=== PATIENT | male | born 1950 | race Caucasian/White ===

== ENCOUNTER 2024-07-06 06:14 | Observation (INO) ==
--- NOTE | 2024-05-27 12:53 | PAT Medication Instructions ---
Medication Instructions Date of Service May 27, 2024 Home Medications cholecalciferol (vitamin D3) 25 mcg (1,000 unit) tablet (Vitamin D3) 50 mcg PO QAM ezetimibe 10 mg tablet 10 mg PO QAM insulin NPH-regular 70-30 U-100 insulin 100 unit/mL subcutaneous pen (Novolin 70-30 FlexPen U-100 Insulin) 5 - 15 unit subcut TID insulin glargine 100 unit/mL (3 mL) subcutaneous pen (Lantus Solostar U-100 Insulin) 34 unit subcut QAM losartan 50 mg tablet 50 mg PO QAM ibuprofen 200 mg tablet 200 - 600 mg PO Q6H PRN Pain ASK your surgeon for instructions ibuprofen 200 mg tablet 200 - 600 mg PO Q6H PRN Pain DO NOT take the morning of surgery cholecalciferol (vitamin D3) 25 mcg (1,000 unit) tablet (Vitamin D3) 50 mcg PO QAM losartan 50 mg tablet 50 mg PO QAM Take morning of surgery With a small sip of water, OTHERWISE NOTHING TO EAT OR DRINK AFTER MIDNIGHT: ezetimibe 10 mg tablet 10 mg PO QAM Take evening before surgery insulin NPH-regular 70-30 U-100 insulin 100 unit/mL subcutaneous pen (Novolin 70-30 FlexPen U-100 Insulin) 5 - 15 unit subcut TID Insulin Dependent Diabetic Patients * Test your blood sugar the morning of surgery * If Blood Sugar is GREATER THAN 150, take HALF of your regular dose of: insulin glargine 100 unit/mL (3 mL) subcutaneous pen (Lantus Solostar U-100 Insulin) > take 17 units * If Blood Sugar is LESS THAN 150, DO NOT TAKE ANY: insulin glargine 100 unit/mL (3 mL) subcutaneous pen (Lantus Solostar U-100 Insulin) To receive further instructions at PAT visit: insulin NPH-regular 70-30 U-100 insulin 100 unit/mL subcutaneous pen (Novolin 70-30 FlexPen U-100 Insulin) 5 - 15 unit subcut TID Other Notes If you have any questions please call us at [phone] or [phone] or [phone] or [phone]
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
[2024-07-06] MEDS ORDERED: BUPIVACAINE 0.5 % 5 MG/1 ML PF 10ML VIAL ONE (06:28)
[2024-07-06] MEDS ORDERED: BUPIVACAINE 0.25% PF 30 ML VIAL ONE (06:28)
--- NOTE | 2024-07-06 06:42 | History & Physical Bridge Note ---
Date of Service July 06, 2024 History & Physical Bridge Note I have examined the patient, reviewed the History & Physical and in the interval since the performance of the History & Physical I have noted the following changes of clinical significance: no changes noted
[2024-07-06] MEDS ORDERED: MIDAZOLAM HCL 1 MG/ML 2ML VIAL ONE (07:11)
[2024-07-06] MEDS ORDERED: fentaNYL citrate PF 100 MCG/2 ML VIAL ONE ×2 (07:11→09:21)
[2024-07-06] MEDS: FAMOTIDINE 20 MG TAB PO SCH (07:13)
[2024-07-06] MEDS: LR 60ML/HR IV SCH (07:13)
[2024-07-06] MEDS: METOCLOPRAMIDE HCL 10 MG TABLET PO SCH (07:13)
[2024-07-06] MEDS: ACETAMINOPHEN 500 MG TAB PO SCH ×2 (07:13→14:24)
[2024-07-06] MEDS: LR 500ML BOLUS, THEN 15ML/HR IV SCH (07:13)
[2024-07-06] MEDS: CeleBREX 200 MG CAP PO SCH (07:13)
[2024-07-06] MEDS ORDERED: ATROPINE SULFATE 0.1 MG/ML 10ML SYR IV PRN (08:05)
[2024-07-06] MEDS ORDERED: ONDANSETRON INJ 2 MG/ML 2 ML VIAL IV PRN ×2 (08:05→10:52)
[2024-07-06] MEDS ORDERED: ePHEDrine sulfate 50 MG/ML AMP IV PRN (08:05)
[2024-07-06] MEDS: GABAPENTIN 300 MG CAP PO ONE (08:42)
[2024-07-06] MEDS ORDERED: ONDANSETRON INJ 2 MG/ML 2 ML VIAL ONE (09:23)
[2024-07-06] MEDS ORDERED: PROPOFOL IV EMULSION 10 MG/ML 20 ML VIAL IV ONE (09:23)
[2024-07-06] MEDS ORDERED: DEXAMETHASONE SOD INJ 4 MG/ML VIAL ONE (09:23)
[2024-07-06] MEDS ORDERED: ePHEDrine sulfate 50 MG/ML AMP ONE (09:24)
[2024-07-06] MEDS: ceFAZolin 2000MG 2,000 MG/15 ML SYR IV SCH ×2 (09:27→17:21)
[2024-07-06] MEDS: ROPIV 0.5% 246mg, Ketorolac 30mg, EPINEPHrine 0.5mg in NSS INFIL SCH (09:45)
[2024-07-06] MEDS: ORTHO JOINT ANESTHETIC ONE (09:46)
[2024-07-06] MEDS: TRANEXAMIC ACID 1,000 MG **IV Intra-op IV SCH (10:02)
[2024-07-06] MEDS ORDERED: PHARMACY GLYCEMIC MGMT CONSULT PRN (10:52)
[2024-07-06] MEDS ORDERED: CARBOHYDRATES FOR HYPOGLYCEMIA PO PRN ×2 (10:52→12:15)
[2024-07-06] MEDS ORDERED: ALUMINUM/MAGNESIUM SUSP 30 ML UDC PO PRN (10:52)
[2024-07-06] MEDS ORDERED: MAGNESIUM HYDROXIDE SUSP 30 ML UDC PO PRN (10:52)
[2024-07-06] MEDS ORDERED: DEXTROSE 50% 50 ML SYRINGE IV PRN ×2 (10:52→12:15)
[2024-07-06] MEDS ORDERED: METOCLOPRAMIDE HCL INJ 5 MG/ML 2 ML VIAL IV PRN (10:52)
[2024-07-06] MEDS ORDERED: NALOXONE HCL 0.4 MG/1 ML VIAL/CARP IV PRN (10:52)
[2024-07-06] MEDS ORDERED: GLUCOSE 10 TAB/TUBE PO PRN ×2 (10:52→12:15)
[2024-07-06] MEDS ORDERED: TAMSULOSIN HCL 0.4 MG CAP PO PRN (10:52)
[2024-07-06] MEDS ORDERED: HYDROmorphone INJ 0.5 MG/0.5 ML SYR IV PRN (10:52)
[2024-07-06] MEDS ORDERED: GLUCOSE 40% GEL 15 GM TUBE PO PRN ×2 (10:52→12:15)
[2024-07-06] MEDS ORDERED: bisacodyL 10 MG SUPP PR PRN (10:52)
[2024-07-06] MEDS ORDERED: GLUCAGON FOR INJ 1 MG VIAL SQ PRN (10:52)
--- NOTE | 2024-07-06 11:05 | Operative Report ---
PG Post Operative Report Pre & Post Diagnosis Operation Date: 07/06/24 08:50 Pre-Op Diagnosis: Right Knee Degenerative Joint Disease Post-Op Diagnosis: Right Knee Degenerative Joint Disease I identified the patient and participated in the time-out.: Yes Procedure Operation Date: 07/06/24 08:50 Actual Procedures p Right Total Knee Arthroplasty, Cemented(Right) - Bernabe Malloy MD Surgeon Bernabe Malloy MD Car Shifter Cheikh Nixon PA-C Estimated Blood Loss 50 Findings Consistent with Post-Op Diagnosis Operative findings show advanced right knee tricompartment DJD. He had grade 4 [id number] disease in all 3 compartments most severe in the medial side. He is a fixed varus deformity to his knee. Moderate-sized joint effusion. Specimens Right knee sent for pathology. Anesthesia Type General Regional Complications none Disposition Accompanied Patient To Recovery: No Indications Patient is 74-year-old gentleman is had a several year history of increasing right knee pain discomfort became less successful to conservative care. X-rays show advanced right knee DJD. He elects proceed with total knee arthroplasty. Description of Procedure Operative implants consist of: 1. Biomet Vanguard size 67.5 right posterior stabilized femoral component. 2. Biomet size 75 tibial tray. 3. 14 mm posterior stabilized polyethylene insert. 4. 31 x 8 all poly patella. The patient was taken the op room, identified, and placed on the operating table in the supine position. All contact areas were appropriately padded. IV antibiotics tried by anesthesia team. A spinal anesthetic was not performed due to his history of multiple back surgeries. A general anesthetic was implemented. A right thigh tent was then placed. The right lower extremities then prepped and draped in usual sterile fashion. The right leg was elevated exsanguinated with use of an Esmarch and tourniquet placed at 300 mmHg. An anterior approach to the right knee was then performed to longitudinal incision centered over the patella. Sharp dissection was got through subcutaneous tissue down the extensor mechanism. A medial parapatellar arthrotomy incision was made. Some subperiosteal dissection was carried out medially. The fat pad was resected munis patella tendon. The lateral patellofemoral ligament was released. Patella subluxated laterally knee was flexed. The osteophytes taken off distal femur. The ACL and PCL were then released from the distal femur the tibia subluxated anteriorly. The external treatment line jig was then placed on the anterior face of the tibia and adjusted 14 mm medially. Proximal tibial cut was made remove about a millimeter bone from the most deficient aspect medial tibial plateau. Some osteophytes taken off medially. The tibia sized to a size 75. Attention drawn to the femur. The distal femur examined the sharp drill. Intramedullary canal was suction. A right 6 degree valgus cutting guide was placed. The distal femoral cutting block was pinned in place. Distal femoral cut was made to take an additional 3 mm of bone off distal femur. The femur was then sized to a size 67.5. The AP cutting block was pinned parallel to the left car axis which was 3 degrees of external rotation. The anterior cut, anterior chamfer, posterior cut, posterior chamfer cuts were made. The box cutting guide was placed and adjust slight lateral and the box cut was made. The knee was flexed. The remnants of the medial and lateral menisci were excised. The osteophytes taken off the posterior aspect the femur. A trial femoral component was placed. The tibial tray was pinned Kirstie external rotation and the drill and stem punch were used to create defect in proximal tibia for the tibial tray. The knee was then trialed and the 14 mm insert fit most appropriately. Attention drawn the patella. The patella was cleaned of all soft tissue. Patella thickness measured 23 mm in thickness was cut down to 14. Was sized to a size 31 patella. The locals were drilled for 31 patella. The lateral osteophyte was removed. Patella button was placed. Knee was taken through range of motion patella tracked nicely with no thumbs test. Attention drawn to place the permanent components. Nupathe all trial components were removed. Bone plug was placed in the distal femur limit blood loss. A double batch Palacos G cement was mixed. A Biomet Vanguard size 67.5 right posterior Byce femoral component, size 75 tibial tray, a 14 mm posterior Byce polyethylene insert, and a 31 x 8 all poly patella then cemented in place. The knee was brought out into full extension till cement hardened. Final cement check was then performed. The pericapsular tissues were injected with total 100 cc of Ortho mix. The patient did get 1 g of tranexamic acid. The tourniquet was then let down for final. Time 57 minutes. He states that surgeries electrocautery. Extensor Meclomen closed with combination 1 PDS suture #1 Vicryl suture in a [id number] fashion. Extensor Meclomen checked found to be intact and subcutaneous tissue then closed with 2 Dexon suture in a buried interrupted fashion skin was closed skin joão. Leg was then cleaned and dried a sterile dressing with Xeroform, 4 fours, sterile cast padding, Soto bandage were applied. Patient then transferred to the recovery room stable condition. Patient tolerated procedure well and there are no complications. Cheikh Nixon, my physician marketing assistant manager, was present for the entire procedure. His assistance was essential and required for appropriate patient positioning, prepping and draping, surgical exposure, performing the technical details of the operation, placement the implants, closure of the wound, and placement of the sterile bandage. I attest to the content of the Intraoperative Record and any orders documented therein. Any exceptions are noted below.
--- NOTE | 2024-07-06 11:10 | XRay Report ---
XR knee RT 1 or 2V routine HISTORY: 74 years-old Male Surgical Post Op right knee arthroplasty COMPARISON: 05/19/2024 TECHNIQUE: 2 views of the right knee FINDINGS: Total arthroplasty with patellar resurfacing. No acute fracture or dislocation. Anterior midline skin joão and expected postoperative soft tissue swelling and deep tissue air with arterial calcificat ions. IMPRESSION: Total joint arthroplasty with expected postoperative changes. ACT 112: Negative or not required by law. The above report was generated using voice recognition software. It may contain grammatical, syntax o r spelling errors. Electronically signed by: Michael Duran M.D. 07/06/2024 11:08 AM
[2024-07-06] MEDS: fentaNYL citrate PF 100 MCG/2 ML VIAL IV PRN (11:13)
--- NOTE | 2024-07-06 11:45 | Anesthesiology Progress Note ---
Date of Service July 06, 2024 Anesthesia Post Procedure Vital Signs Vital Signs: Temp Pulse Resp BP Pulse Ox O2 Del Method O2 Flow Rate 07/06/24 11:35 80 20 154/91 H 94 Oxymask 3 07/06/24 11:25 75 14 163/86 H 97 Oxymask 5 07/06/24 11:15 77 13 176/89 H 96 Oxymask 5 07/06/24 11:05 79 18 178/100 H 94 Oxymask 5 07/06/24 10:56 36.8 C 86 14 165/87 H 94 Oxymask 9 07/06/24 06:54 36.8 C 68 20 150/98 H 97 Room Air Pain Intensity Right Knee: Pain Intensity: 4 Transfer of Care Handoff Completed per policy Notes Mental Status: alert / awake / arousable and participated in evaluation Patient Amnestic to Procedure: Yes Nausea / Vomiting: adequately controlled Pain: adequately controlled Airway Patency, RR, SpO2: stable & adequate BP & HR: stable & adequate Hydration State: stable & adequate Anesthetic Complications: no major complications apparent and Pt Satisfied with anesthetic care Notes: Pt without hiccups in recovery. was given preop gabapentin and iv protonix. dr snyder made aware if hiccups happen postop could consider omeprazole and please contact our service for guidance.
[2024-07-06] MEDS ORDERED: GLUCAGON FOR INJ 1 MG VIAL IM PRN (12:15)
[2024-07-06 13:06] VITALS: RESP 18
--- NOTE | 2024-07-06 13:27 | Pharmacy Report ---
Pharmacy Glycemic Short Note 2 - Date of Service July 06, 2024 - Glycemic Short BSG Results (Last 24 hours): 07/06/24 07/06/24 06:47 11:03 POC Glucose 129 H 180 H OUTPATIENT ANTIDIABETIC REGIMEN: * Patient reports Lantus 34 units SC qAM + Novolin 70/30 5-15 units SC TID (based on BSG levels) HbA1c: 8.3% (06/02/24) ASSESSMENT: * LN is a 74 year old male POD # 0 s/p right total knee arthroplasty * Received 12 mg IV dexamethasone in OR * Ordered 10 mg IV dexamethasone daily x 1 tomorrow morning * Preop blood sugar of 129 mg/dL, postop blood sugar of 180 mg/dL * Will use aggressive weight-based stress of 3 Novolog parameters + ~0.4 unit/kg basal (adjusted body-weight) PLAN FOR INPATIENT GLYCEMIC CONTROL: * Basal insulin * Lantus 30 units SQ x 1 (~0.4 unit/kg of adjusted body-weight) * Reassess in AM with next dose of IV dexamethasone * Bolus insulin * NovoLog per scale ACHS or Q6hrs while NPO * Goal Range: Low 110 mg/dL - High 140 mg/dL * Correction Factor: 15 mg/dL/unit * Nutritional / Prandial insulin per carb ratio of 1 unit per 5 grams CHO consumed
[2024-07-06] MEDS: LANTUS PER UNIT CHARGE SC ONE ×2 (13:58→17:11)
[2024-07-06] MEDS: INSULIN ASPART PER UNIT CHARGE SC SCH (13:58)
[2024-07-06] MEDS: SODIUM CHLORIDE 0.9% 1,000 ML IV SCH (13:58)
[2024-07-06] MEDS ORDERED: ACETAMINOPHEN 500 MG TAB PO SCH (14:00)
[2024-07-06] MEDS: oxyCODONE HCL IR 5 MG TAB (IMMEDIATE RELEASE) PO PRN (14:02)
[2024-07-06] MEDS: PANTOprazole 40 MG in SYRINGE 0 ML IV ONE (14:46)
[2024-07-06] MEDS: KETOROLAC TROMETHAMINE 15 MG/ML VIAL IV SCH (15:47)
[2024-07-06] MEDS: ASCORBIC ACID 500 MG TAB PO SCH (17:12)
[2024-07-06 19:45] VITALS: O2SAT 95
[2024-07-06] MEDS: ASPIRIN 81 MG ECTAB PO SCH (20:43)
[2024-07-06] MEDS: DOCUSATE SODIUM 100 MG CAP PO SCH (20:43)
[2024-07-06] MEDS: SENNA 8.6 MG TAB PO SCH (20:43)
[2024-07-06] MEDS ORDERED: LANTUS PER UNIT CHARGE SC SCH (21:00)
[2024-07-06] MEDS ORDERED: ASPIRIN 81 MG ECTAB PO SCH (21:00)
[2024-07-06] MEDS ORDERED: SENNA 8.6 MG TAB PO SCH (21:00)
[2024-07-06 21:54] LABS: BUN Creatinine Ratio 20.1 (10-20); Calcium 8.4 mg/dl (8.6-10.3); Creatinine Clr Calc Pharmacy 48.7 ml/min; Est GFR (African American) 49.5 ml/min; Est GFR (Non-African American) 42.7 ml/min; Potassium 5.5 mmol/L (3.5-5.1)
[2024-07-06] MEDS: TRANEXAMIC ACID / 0.7% NACL 1,000 MG/100 ML BAG IV SCH (22:23)
[2024-07-07] MEDS ORDERED: INSULIN ASPART PER UNIT CHARGE SC SCH
[2024-07-07] MEDS: INSULIN ASPART PER UNIT CHARGE SC SCH (00:32)
[2024-07-07 06:32] LABS: Hematocrit (blood only) 37.1 % (42.0-52.0); Hemoglobin 12.1 g/dl (14.0-18.0); Mean Corpuscular Hemoglobin 28.9 pg (25.0-34.0); Mean Corpuscular Hgb Conc 32.6 g/dL (32.0-36.0); Mean Corpuscular Volume 88.8 fL (80.0-100.0); Mean Platelet Volume 11.6 fL (9.4-12.4); Platelet Count 289 K/uL (130-400); RDW Coefficient of Variation 13.5 % (11.5-14.5); RDW Standard Deviation 43.8 fL (36.4-46.3); Red Blood Count 4.18 M/uL (4.70-6.10); White Blood Count 15.97 K/ul (4.8-10.8)
[2024-07-07 06:40] LABS: Calcium 8.3 mg/dl (8.6-10.3); Creatinine Clr Calc Pharmacy 55.3 ml/min; Est GFR (African American) 57.8 ml/min; Est GFR (Non-African American) 49.8 ml/min; Potassium 4.2 mmol/L (3.5-5.1)
[2024-07-07 07:08] VITALS: BP 121/61; PULSE 60; TEMP 97.7
[2024-07-07] MEDS: dexAMETHasone 10 MG in SYRINGE 0 ML IV SCH (08:10)
[2024-07-07] MEDS: MULTIVITAMIN TAB PO SCH (08:11)
[2024-07-07] MEDS: TAMSULOSIN HCL 0.4 MG CAP PO SCH (08:11)
[2024-07-07] MEDS: EZETIMIBE 10 MG TAB PO SCH (08:12)
[2024-07-07] MEDS: LOSARTAN POTASSIUM 50 MG TAB PO SCH (08:12)
[2024-07-07] MEDS: CHOLECALCIFEROL 25 MCG (1000 UNITS) TAB PO SCH (08:12)
[2024-07-07] MEDS ORDERED: LANTUS PER UNIT CHARGE SC SCH (09:00)
--- NOTE | 2024-07-07 09:20 | Pharmacy Report ---
Pharmacy Glycemic Short Note 2 - Date of Service July 07, 2024 - Glycemic Short BSG Results (Last 24 hours): 07/06/24 07/06/24 07/06/24 11:03 13:49 16:09 Glucose POC Glucose 180 H 273 H 355 H* 07/06/24 07/06/24 07/06/24 16:12 20:26 20:28 Glucose POC Glucose 307 H* 366 H* 399 H* 07/06/24 07/07/24 07/07/24 21:03 00:20 04:30 Glucose 375 H* POC Glucose 231 H 131 H 07/07/24 07/07/24 05:26 07:32 Glucose 131 H POC Glucose 130 H OUTPATIENT ANTIDIABETIC REGIMEN: * Patient reports Lantus 34 units SC qAM + Novolin 70/30 5-15 units SC TID (based on BSG levels) * HbA1c: 8.3% (06/02/24) ASSESSMENT: 07/07 * BSG's increased significantly after PO intake yesterday - likely steroid induced. Correction factor and CHO ratio were both tightened. POD 1 today and 2nd dose of dexamethasone given this AM. No ongoing steroids ordered at this time. * AM fasting BSG wnl - will continue same total daily dose today, but will not schedule additional for tomorrow yet due to steroid taper * OK to maintain tighter CHO ratio, but will loosen correction factor a bit as BSG's are now wnl with higher dose of Lantus now mostly on board (although not at steady state) 07/06 * LN is a 74 year old male POD # 0 s/p right total knee arthroplasty * Received 12 mg IV dexamethasone in OR * Ordered 10 mg IV dexamethasone daily x 1 tomorrow morning * Preop blood sugar of 129 mg/dL, postop blood sugar of 180 mg/dL * Will use aggressive weight-based stress of 3 Novolog parameters + ~0.4 unit/kg basal (adjusted body-weight) PLAN FOR INPATIENT GLYCEMIC CONTROL: * Basal insulin * Lantus 45 units SQ x 1 w lunch * Reassess in AM * Bolus insulin * NovoLog per scale ACHS or Q6hrs while NPO * Goal Range: Low 110 mg/dL - High 140 mg/dL * Correction Factor: 15 mg/dL/unit * Nutritional / Prandial insulin per carb ratio of 1 unit per 4 grams CHO consumed
[2024-07-07] MEDS ORDERED: LANTUS PER UNIT CHARGE SC ONE (11:30)
[2024-07-07] MEDS ORDERED: LANTUS PER UNIT CHARGE SC STA (11:50)
--- NOTE | 2024-07-07 12:41 | Orthopedic Progress Note ---
Date of Service July 07, 2024 Assessment & Plan (1) Status post right knee replacement: Plan: 74-year-old male poorly controlled diabetic postop day 1 from right knee replacement doing pretty well. Pains controlled. Blood glucoses were pretty elevated but under better control this morning. Plan: 1. DVT prophylaxis including Thiede teds, SCDs, aspirin twice a day. 2. PT/OT. Weight-bear as tolerated. Right total knee protocol. 3. Pain control doing okay with current pain regimen. 4. Disposition plan is to discharge to home with some home health later today. (2) Diabetes mellitus, type 2: (3) Hyperlipidemia: (4) Hypertension: Admission and Anticipated Discharge Date Admission Date: July 06, 2024 Subjective 74-year-old gentleman postop day 1 from a right knee replacement. He is doing pretty well. Had a pretty good night. Pains controlled. No chest pain or shortness of breath. Not feeling dizzy or lightheaded. Physical Exam Physical Exam: Physical examination reveals a pleasant middle-age male. He was walking around his room with a walker and the physical therapist when I visited today. Examination of the right leg does reveal a little bit of bloody drainage on the front of the dressing. He can do a straight leg raise. Can dorsiflex and plantarflex his foot appropriately. He is neurologically intact. Respiratory: normal respiratory effort, lungs clear to auscultation Cardiovascular: RRR, no murmur, no edema Gastrointestinal (Abdomen): normal bowel sounds, soft, nontender, no hepatosp lenomegaly Results & Data Vital Signs (Past 12 Hours) Vital Signs Temp Pulse Resp BP Pulse Ox O2 Del Method 07/07/24 07:07 36.5 C 60 18 121/61 95 Room Air 07/07/24 04:00 36.7 C 62 18 119/65 95 Room Air Laboratory Results Hemoglobin is 12.1. Hematocrit is 37.1. Electrolytes are fairly stable. Blood glucose has been a bit out of control but better this morning.
== END 2024-07-07 12:01 | disposition home health service (06) ==
LOC: 3E 06:14 → ASU 06:14

== ENCOUNTER 2025-04-30 13:39 | Inpatient (IN) ==
[2025-04-30] MEDS: HYDROmorphone INJ 0.5 MG/0.5 ML SYR IV STA (14:11)
[2025-04-30 14:20] LABS: Hematocrit (blood only) 49.4 % (42.0-52.0); Hemoglobin 16.6 g/dl (14.0-18.0); Immature Granulocytes # (auto) 0.03 K/uL (0.01-0.20); Immature Granulocytes % (auto) 0.4 %; Mean Corpuscular Hemoglobin 29.6 pg (25.0-34.0); Mean Corpuscular Volume 88.2 fL (80.0-100.0); Platelet Count 262 K/uL (130-400); RDW Standard Deviation 44.5 fL (36.4-46.3); Red Blood Count 5.60 M/uL (4.70-6.10); White Blood Count 7.00 K/ul (4.8-10.8)
[2025-04-30 14:38] LABS: Alanine Aminotransferase 29.0 U/L (7-52); Albumin Globulin Ratio 1.4 (0.9-2); Alkaline Phosphatase 70.0 U/L (34-104); Anion Gap 8.0 (3-11); Bilirubin,Total 0.6 mg/dl (0.2-1.0); Blood Urea Nitrogen 27.0 mg/dl (6-23); Calcium 9.1 mg/dl (8.6-10.3); Carbon Dioxide 24.0 mmol/L (21-32); Chloride 105.0 mmol/L (98-107); Creatinine Clr Calc Pharmacy 74.8 ml/min; Globulin 3.0 gm/dl (2.5-4.0); Glucose 93.0 mg/dl (70-99(Fasting)); Potassium 4.3 mmol/L (3.5-5.1); Sodium 137.0 mmol/L (136-145); Total Protein 7.3 gm/dl (6.0-8.3)
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
--- NOTE | 2025-04-30 15:24 | XRay Report ---
Exam: Chest x-ray one view portable. Reason for exam: Surgery preop screening. Previous studies: 02/01/2024. FINDINGS: Heart size is increased further with a moderate cardiomegaly now present. Increasing central pulmonary venous hypertension is present as well with the cephalization and distention of the central vessels. Marked abnormal widening of the mid and superior mediastinum are now present, newly appearing since the previous study. The peripheral lung zones show no definite acute infiltrate, collapse or edema. No large pleural effusion seen. IMPRESSION: 1. Increasingly severe cardiomegaly with significantly increased pulmonary venous hypertension as compared to the previous study of 06/02/2024. 2. Development of marked abnormal widening of the superior mediastinum not seen on the previous study. This could be at least partially vascular congestion, however developing underlying mass, adenopathy or aneurysm cannot be excluded. 3. Further evaluation with CT study of the thorax is indicated for this patient. Electronically signed by Javier Anne 04-30-2025 3:23 PM
[2025-04-30] MEDS ORDERED: ONDANSETRON INJ 2 MG/ML 2 ML VIAL IV PRN (15:45)
[2025-04-30] MEDS ORDERED: PHARMACY GLYCEMIC MGMT CONSULT PRN (15:45)
[2025-04-30] MEDS ORDERED: NALOXONE HCL 0.4 MG/1 ML VIAL/CARP IV PRN (15:45)
[2025-04-30] MEDS ORDERED: METOCLOPRAMIDE HCL INJ 5 MG/ML 2 ML VIAL IV PRN (15:45)
[2025-04-30] MEDS ORDERED: LORazepam 0.5 MG TAB PO PRN (15:45)
[2025-04-30] MEDS ORDERED: ONDANSETRON 4 MG OD TAB PO PRN (15:45)
[2025-04-30] MEDS ORDERED: ACETAMINOPHEN 1,000 MG/100 ML VIAL IV PRN (15:45)
[2025-04-30] MEDS ORDERED: MAGNESIUM HYDROXIDE SUSP 30 ML UDC PO PRN (15:45)
[2025-04-30] MEDS ORDERED: ACETAMINOPHEN 500 MG TAB PO PRN (15:45)
[2025-04-30] MEDS ORDERED: PROMETHAZINE 12.5 MG/50.5 ML BAG IV PRN (15:45)
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
[2025-04-30] MEDS ORDERED: GLUCOSE 40% GEL 15 GM TUBE PO PRN (16:15)
[2025-04-30] MEDS ORDERED: GLUCOSE 10 TAB/TUBE PO PRN (16:15)
[2025-04-30] MEDS ORDERED: DEXTROSE 50% 50 ML SYRINGE IV PRN (16:15)
[2025-04-30] MEDS ORDERED: GLUCAGON FOR INJ 1 MG VIAL SQ PRN (16:15)
[2025-04-30] MEDS: OPTIRAY 320 125ml IV ONE (16:51)
[2025-04-30] MEDS: INSULIN ASPART PER UNIT CHARGE SC SCH (16:55)
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
--- NOTE | 2025-04-30 18:43 | CT Scan Report ---
CTA CHEST WITH and WITHOUT CONTRAST: HISTORY: TECHNIQUE: CT angiogram of the chest was obtained with and without intravenous contrast. Coronal and sagittal reformats were created. IV CONTRAST: 100 mL of OMNIPAQUE 300 COMPARISON: Chest radiograph from same day. FINDINGS: LOWER NECK: Right thyroid nodule measuring 2.5 cm. Recommend nonemergent thyroid ultrasound for evaluation LYMPH NODES: Mildly enlarged mediastinal and hilar lymph nodes are nonspecific. Of note, there is a right hilar lymph node measuring 2.5 cm CARDIOVASCULAR: Cardiac size is enlarged. Coronary artery and valvular calcifications are noted. No aortic aneurysm. LUNGS: The trachea and central bronchi are widely patent. No focal confluent infiltrates are seen. Peribronchial wall thickening. Reticular changes in the periphery likely representing mild fibrotic change. Pulmonary vascular congestion. 4 mm subpleural nodule in the right middle lobe (series 5, image 28). There is a perifissural nodule in the left lower lobe measuring 6 mm (series 7, image 93) PLEURA: There are no pleural effusions. There is no pneumothorax. UPPER ABDOMEN: No acute findings. OSSEOUS STRUCTURES: No acute findings IMPRESSION: Mildly enlarged mediastinal and hilar lymph nodes are nonspecific. Of note, there is a right hilar lymph node measuring 2.5 cm Bronchiolitis. No focal consolidation. Pulmonary nodules measuring up to 6 mm as above. These are nonspecific however metastatic process could be a possibility in a right proper clinical context Right thyroid nodule measuring 2.5 cm. Recommend nonemergent thyroid ultrasound for evaluation Electronically signed by Shawn Jamison 04-30-2025 6:43 PM
[2025-04-30] MEDS: ASPIRIN 81 MG ECTAB PO SCH (20:47)
[2025-04-30] MEDS ORDERED: INSULIN ASPART PER UNIT CHARGE SC SCH (21:00)
[2025-04-30] MEDS ORDERED: LANTUS PER UNIT CHARGE SQ SCH (21:00)
[2025-05-01] MEDS: INSULIN ASPART PER UNIT CHARGE SC SCH ×3 (00:18→23:32)
[2025-05-01] MEDS: HYDROmorphone INJ 1 MG/ML SYRINGE IV PRN (00:58)
[2025-05-01] MEDS: HYDROmorphone INJ 0.5 MG/0.5 ML SYR IV PRN ×2 (05:51→23:33)
[2025-05-01] MEDS: TAMSULOSIN HCL 0.4 MG CAP PO SCH (08:56)
[2025-05-01] MEDS: LOSARTAN POTASSIUM 50 MG TAB PO SCH (08:56)
[2025-05-01] MEDS ORDERED: GLYCOPYRROLATE 0.2 MG/ML VIAL ONE (10:30)
[2025-05-01] MEDS ORDERED: ROCURONIUM BROMIDE 10 MG/ML 5 ML VIAL IV ONE (10:30)
[2025-05-01] MEDS ORDERED: DEXAMETHASONE SOD INJ 4 MG/ML VIAL ONE (10:30)
[2025-05-01] MEDS ORDERED: PROPOFOL IV EMULSION 10 MG/ML 20 ML VIAL IV ONE (10:30)
[2025-05-01] MEDS ORDERED: LIDOCAINE 2% 2 ML VIAL/AMP(20MG/ML) INFIL ONE (10:30)
[2025-05-01] MEDS ORDERED: ONDANSETRON INJ 2 MG/ML 2 ML VIAL ONE (10:30)
[2025-05-01] MEDS ORDERED: MIDAZOLAM HCL 1 MG/ML 2ML VIAL ONE (10:31)
[2025-05-01] MEDS ORDERED: SUGAMMADEX SODIUM 200 MG/2 ML VIAL IV ONE (10:31)
[2025-05-01 11:07] LABS: Hemoglobin A1C 10.0 % (4.5-5.6)
--- NOTE | 2025-05-01 11:13 | Hospitalist Progress Note ---
Date of Service May 01, 2025 Assessment & Plan (1) Neurogenic claudication due to lumbar spinal stenosis: (2) Abnormal chest xray: (3) Diabetes mellitus, type 2: Plan This is a 75 y/o male with insulin-requiring DM2 and other history as outlined who presented to the ED today with progressive lower back pain radiating down his left leg. Severe lower back pain Lumbar stenosis with radiculopathy -Outpatient MRI: large inferiorly extruded and possibly sequestered disc fragment eccentric to the left at L1-L2 with impingement on left nerve roots and moderate central canal stenosis, cauda equina likely tethered at this level -Admitted by ortho spine with plans for OR today for T12-L2 decompression and fusion surgery by Dr. Roman -Per ortho for pain control, wound care, anticoagulation and activities -Monitor H&H (pre-op hgb 16.6), incentive spirometry, PT/OT when appropriate Insulin-requiring DM2 - Basal/bolus insulin during admission - glycemic pharmacist consulted - Diabetic diet - A1c in AM - BSG ACHS Abnormal CXR -Admitted CXR abnormal with widened mediastinum of unclear etiology. Pt denies cardiac or respiratory complaints, no history of aortic aneurysm -CTA chest w/wo con ordered - no aortic aneurysm, cardiomegaly, vasc congestion and reticular changes noted in periphery of lungs likely representing mild fibrotic change -R thyroid nodule noted - recommend nonemergent thyroid ultrasound as outpatient -Saturating at 94% on room air, routine 2D echo added for further evaluation, can be done after OR today HTN - pt reports not an active issue, no longer on anti-hypertensive medication, follows with the [facility]. Optimize pain control DVT Ppx: SCDs per primary service PCP: [facility] Dispo: Admitted to med/surg Patient seen in collaboration with Dr. Alvarado. Please see addendum. Thank you for this consultation. We will follow the patient with you during their hospital stay. You can [facility] a [facility] via [email or web address]. I spent a total of 50 minutes coordinating, documenting, and providing care for this patient excluding time spent in the performance of separately billed ser vices or time spent by another provider/QHP. Admission and Anticipated Discharge Date Admission Date: April 30, 2025 Supervising Physician Co-Signing Physician Notes The patient was not seen and examined but the chart,labs and the medications reviewed Agree with assessment plan as outlined above by DEONDRE Salazar DR Subjective Seen and examined in 356-2. Lower back discomfort radiating to L leg. Awaiting OR. No other acute complaints. Bowel movement yesterday. Urinating without issue. Can ambulate to the bathroom and back but feels too weak beyond that at this time. No F/C, lightheadedness, CP, SOB, N/V, abd pain, dysuria, diarrhea or constipation. Physical Exam Physical Exam: At least ten systems reviewed and negative except as noted in the HPI. Results & Data Results & Data Vital Signs (Past 12 Hours) Vital Signs Temp Pulse Resp BP Pulse Ox O2 Del Method 05/01/25 07:13 36.3 C L 70 16 157/83 H 94 Room Air Laboratory Results Short CBC 04/30/25 Range/Units 14:08 WBC 7.00 (4.8-10.8) K/ul Hgb 16.6 (14.0-18.0) g/dl Hct 49.4 (42.0-52.0) % Plt Count 262 (130-400) K/uL BMP 04/30/25 14:08 Sodium 137 Potassium 4.3 Chloride 105 Carbon Dioxide 24 BUN 27 H Creatinine 1.07 Glucose 93 Calcium 9.1 Liver Function 04/30/25 Range/Units 14:08 Total Bilirubin 0.6 (0.2-1.0) mg/dl AST 18 (13-39) U/L ALT 29 (7-52) U/L Alkaline Phosphatase 70 (34-104) U/L Albumin 4.3 (3.4-5.0) gm/dl Diagnostic Findings Chest X-Ray 04/30/25 14:19 Exam: Chest x-ray one view portable. Reason for exam: Surgery preop screening. Previous studies: 02/01/2024. FINDINGS: Heart size is increased further with a moderate cardiomegaly now present. Increasing central pulmonary venous hypertension is present as well with the cephalization and distention of the central vessels. Marked abnormal widening of the mid and superior mediastinum are now present, newly appearing since the previous study. The peripheral lung zones show no definite acute infiltrate, collapse or edema. No large pleural effusion seen. IMPRESSION: 1. Increasingly severe cardiomegaly with significantly increased pulmonary venous hypertension as compared to the previous study of 06/02/2024. 2. Development of marked abnormal widening of the superior mediastinum not seen on the previous study. This could be at least partially vascular congestion, however developing underlying mass, adenopathy or aneurysm cannot be excluded. 3. Further evaluation with CT study of the thorax is indicated for this patient. Electronically signed by Javier Anne 04-30-2025 3:23 PM Chest CTA 04/30/25 15:56 CTA CHEST WITH and WITHOUT CONTRAST: HISTORY: TECHNIQUE: CT angiogram of the chest was obtained with and without intravenous contrast. Coronal and sagittal reformats were created. IV CONTRAST: 100 mL of OMNIPAQUE 300 COMPARISON: Chest radiograph from same day. FINDINGS: LOWER NECK: Right thyroid nodule measuring 2.5 cm. Recommend nonemergent thyroid ultrasound for evaluation LYMPH NODES: Mildly enlarged mediastinal and hilar lymph nodes are nonspecific. Of note, there is a right hilar lymph node measuring 2.5 cm CARDIOVASCULAR: Cardiac size is enlarged. Coronary artery and valvular calcifications are noted. No aortic aneurysm. LUNGS: The trachea and central bronchi are widely patent. No focal confluent infiltrates are seen. Peribronchial wall thickening. Reticular changes in the periphery likely representing mild fibrotic change. Pulmonary vascular congestion. 4 mm subpleural nodule in the right middle lobe (series 5, image 28). There is a perifissural nodule in the left lower lobe measuring 6 mm (series 7, image 93) PLEURA: There are no pleural effusions. There is no pneumothorax. UPPER ABDOMEN: No acute findings. OSSEOUS STRUCTURES: No acute findings IMPRESSION: Mildly enlarged mediastinal and hilar lymph nodes are nonspecific. Of note, there is a right hilar lymph node measuring 2.5 cm Bronchiolitis. No focal consolidation. Pulmonary nodules measuring up to 6 mm as above. These are nonspecific however metastatic process could be a possibility in a right proper clinical context Right thyroid nodule measuring 2.5 cm. 

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
[2025-05-01] MEDS ORDERED: ATROPINE SULFATE 0.1 MG/ML 10ML SYR IV PRN (13:27)
[2025-05-01] MEDS ORDERED: ONDANSETRON INJ 2 MG/ML 2 ML VIAL IV PRN (13:27)
[2025-05-01] MEDS ORDERED: PROMETHAZINE HCL 6.25 MG in SODIUM CHLORIDE 0.9% 50 ML IV PRN (13:27)
--- NOTE | 2025-05-01 13:56 | Electrocardiogram Report ---
Test Reason : Blood Pressure : */* mmHG Vent. Rate : 63 BPM Atrial Rate : 63 BPM P-R Int : 208 ms QRS Dur : 86 ms QT Int : 412 ms P-R-T Axes : 28 -32 -22 degrees QTcB Int : 421 ms Normal sinus rhythm Left axis deviation Minimal voltage criteria for LVH, may be normal variant ( R in aVL ) Abnormal ECG When compared with ECG of 02-Jun-2024 10:05, No significant change was found Confirmed by Robinson Novoa ([id number]) on 05/01/2025 1:56:30 PM Referred By: REFERRED SELF Confirmed By: Robinson Novoa
--- NOTE | 2025-05-01 14:14 | History & Physical Bridge Note ---
Date of Service May 01, 2025 History & Physical Bridge Note I have examined the patient, reviewed the History & Physical and in the interval since the performance of the History & Physical I have noted the following changes of clinical significance: no changes noted Patient has severe lumbar spondylosis with disc herniation neurologic decline, and intermittent loss of bowel control. Subsequently recommending emergent decompression L1-L2 fusion T12-L2
--- NOTE | 2025-05-01 14:37 | Pharmacy Report ---
Pharmacy Glycemic Short Note 2 - Date of Service May 01, 2025 - Glycemic Short BSG Results (Last 24 hours): 04/30/25 04/30/25 04/30/25 14:08 16:31 20:31 Glucose 93 POC Glucose 89 160 H 05/01/25 05/01/25 05/01/25 00:16 06:35 11:54 Glucose POC Glucose 134 H 219 H 153 H OUTPATIENT ANTIDIABETIC REGIMEN: * Novolin 70/30 - SSI TID HbA1c: 10% (05/01/25) ASSESSMENT: * SAM is a 75 year old male who presented w/ lumbar disc herniation w/ radiculopathy scheduled for urgent decompression/fusion * Dexamethasone 8 mg IV x 1 ordered in OR * Patient still in OR at time of this note, will plan for basal postoperatively * Blood sugars elevated today as well as HbA1c PLAN FOR INPATIENT GLYCEMIC CONTROL: * Hold pre-mixed insulin * Basal insulin * Lantus 30-40 units SQ x 1 postoperatively (pending evaluation from evening shift pharmacist) * Bolus insulin * NovoLog per scale ACHS or Q6hrs while NPO * Goal Range: Low 110 mg/dL - High 140 mg/dL * Correction Factor: 15 mg/dL/unit * Nutritional / Prandial insulin per carb ratio of 1 unit per 5 grams CHO consumed
[2025-05-01] MEDS: BUPIVACAINE/EPINEPHRINE 0.25% 1:200,000 30 ML VIAL ONE (15:08)
--- NOTE | 2025-05-01 15:10 | Anesthesiology Progress Note ---
Date of Service May 01, 2025 Anesthesia Post Procedure Vital Signs Vital Signs: Temp Pulse Pulse Resp BP BP Pulse Ox 05/01/25 13:06 37.2 C 76 20 151/90 H 94 05/01/25 07:13 36.3 C L 70 16 157/83 H 94 04/30/25 19:43 36.4 C L 59 L 16 148/84 H 95 04/30/25 15:45 04/30/25 15:45 36.6 C 61 18 170/94 H 94 04/30/25 15:45 16 04/30/25 15:12 63 21 114/77 93 O2 Del Method 05/01/25 13:06 Room Air 05/01/25 07:13 Room Air 04/30/25 19:43 Room Air 04/30/25 15:45 Room Air 04/30/25 15:45 Room Air 04/30/25 15:45 Room Air 04/30/25 15:12 Pain Intensity Medial Back: Pain Intensity: 4 Transfer of Care Handoff Completed per policy Notes Mental Status: alert / awake / arousable and participated in evaluation Patient Amnestic to Procedure: Yes Nausea / Vomiting: adequately controlled Pain: adequately controlled Airway Patency, RR, SpO2: stable & adequate BP & HR: stable & adequate Hydration State: stable & adequate Anesthetic Complications: no major complications apparent
[2025-05-01] MEDS: FLOSEAL HEMOSTATIC MATRIX 10ML TOP ONE (16:10)
[2025-05-01] MEDS: SURGICEL ABSORB HEMOSTAT 2IN X 14IN TOP ONE (16:14)
[2025-05-01] MEDS: ceFAZolin 330 MG/ML 1 GM VIAL ONE (16:16)
[2025-05-01] MEDS ORDERED: HYDROmorphone INJ 2 MG/ML SYR/VIAL ONE (16:35)
--- NOTE | 2025-05-01 16:41 | Operative Report ---
Post Operative Report Pre & Post Diagnosis Operation Date: 05/01/25 07:00 Pre-Op Diagnosis: #1 lumbar disc herniation with radiculopathy #2 lumbar spondylosis with radiculopathy and retrolisthesis #3 lumbar spinal stenosis Post-Op Diagnosis: Same I identified the patient and participated in the time-out.: Yes Procedure Operation Date: 05/01/25 07:00 Actual Procedures #1 decompression with bilateral medial facetectomies and foraminotomies T12-L1 L1-L2 with excision of herniated free fragment L1-L2. #2 posterior spinal fusion T11-L2. #3 placement posterior instrumentation T11-L1 with connectors at L2-L3. #4 interbody fusion L1-L2. #5 placement of Spira 13 x 26 mm at L1-L2. #6 placement locally harvested morselized autograft posterior gutters. #7 placement infuse collagen sponge, with Koros in the posterior lateral gutters and os design interbody space. #8 placement of versa wrap of the exposed dura. Surgeon Nick Roman, DO Remelt Pan Tank Operator Kiki Pringle Estimated Blood Loss 200 Findings See Below The patient is 5 foot 9 weighing over 108 kg with a BMI in excess of 35. The patient's body habitus did contribute to significant technical difficulty with positioning exposure and the procedure itself adding least 50% increased operative time. Specimens None Indications This is a 75-year-old male presents publish diagnosis. With his marked decline in neurologic function he is here for urgent decompression fusion. Description of Procedure Patient was met with identified informed consent obtained. Patient was then taken to the operative suite underwent intubation placed in a prone position on the Ulysses table the chest pad and hip bolsters. All bony prominences well- padded eyes inspected to ensure no external pressure placed upon them. This point the thoracolumbar spine was prepped and draped in a sterile fashion. Sharp dissection with the assistance of Bovie cautery performed down to exposing the lamina and transverse processes of T11 T12-L1 and the instrumentation at L2- L3. More caudal to cephalad fashion complete laminectomy of L1 was performed including bilateral medial facetectomies and foraminotomies as well as addressing a massive disc herniation that had migrated caudally. And I performed partial laminectomy of T12 with bilateral facetectomies to address all subarticular stenosis. Pedicle screws were then placed in T11 T12-L1 bilaterally with assistance of fluoroscopy and a connector attached to the previous william at L2-L3. By way the transforaminal approach on the left complete discectomy of L1-L2 was performed endplates corrected to subcortical bleeding bone and a 13 x 26 mm spiral cage filled with os design bone graft tapped in position. Appropriate size rods were then contoured and locked in the place bilaterally. The transverse processes of T11-T12 L1-L2 burred to subcortical bony bone. Infuse collagen sponge bath Koros and local autograft placed in posterior gutters. First wrap placed over the exposed dura. 15 round JOCELYNE drain inserted. The incision was then closed with 1 Vicryl the fascia 2-0 Vicryl subcutaneously and 4 Monocryl for final skin closure. Steri-Strips and sterile dressing placed. Patient waken taken to PACU in stable condition. Please note Kiki Pringle was present at the entire procedure and on the patient positioning complex portion of the surgery and final skin closure. I attest to the content of the Intraoperative Record and any orders documented therein. Any exceptions are noted below.
[2025-05-01] MEDS ORDERED: LANTUS PER UNIT CHARGE SC STA (17:27)
[2025-05-01] MEDS ORDERED: ESMOLOL HCL INJ 10 MG/ML 10ML VIAL IV ONE (18:30)
--- NOTE | 2025-05-01 18:45 | Anesthesiology Progress Note ---
Date of Service May 01, 2025 Anesthesia Post Procedure Vital Signs Vital Signs: Temp Pulse Pulse Resp BP Pulse Ox O2 Del Method 05/01/25 18:35 82 16 129/74 90 Nasal Cannula 05/01/25 18:25 132 H 14 102/77 92 Nasal Cannula 05/01/25 18:15 134 H 12 120/78 93 Nasal Cannula 05/01/25 18:05 138 H 12 112/73 94 Nasal Cannula 05/01/25 17:55 139 H 20 100/73 94 Nasal Cannula 05/01/25 17:45 142 H 17 116/85 94 Nasal Cannula 05/01/25 17:35 100 H 14 110/91 93 Nasal Cannula 05/01/25 17:25 97 H 12 120/91 93 Oxymask 05/01/25 17:15 129 H 12 116/74 94 Oxymask 05/01/25 17:05 96 H 12 131/79 94 Oxymask 05/01/25 16:58 36.7 C 125 H 12 129/77 94 Oxymask 05/01/25 13:06 37.2 C 76 20 151/90 H 94 Room Air 05/01/25 07:13 36.3 C L 70 16 157/83 H 94 Room Air 04/30/25 19:43 36.4 C L 59 L 16 148/84 H 95 Room Air O2 Flow Rate 05/01/25 18:35 4 05/01/25 18:25 4 05/01/25 18:15 5 05/01/25 18:05 5 05/01/25 17:55 5 05/01/25 17:45 5 05/01/25 17:35 5 05/01/25 17:25 8 05/01/25 17:15 8 05/01/25 17:05 8 05/01/25 16:58 8 05/01/25 13:06 05/01/25 07:13 04/30/25 19:43 Pain Intensity Medial Back: Pain Intensity: 4 Transfer of Care Handoff Completed per policy Notes Mental Status: alert / awake / arousable and participated in evaluation Patient Amnestic to Procedure: Yes Nausea / Vomiting: adequately controlled Pain: adequately controlled Airway Patency, RR, SpO2: stable & adequate BP & HR: stable & adequate Hydration State: stable & adequate Anesthetic Complications: no major complications apparent and Pt Satisfied with anesthetic care Notes: Patient tachycardic in PACU. Denied chest pain/pressure/SOB. Pain well controlled. Only 200ml reported blood loss during procedure (patient with high H/H preop so less likely tachy 2/2 anemia). Multiple ECG's done as patient's HR 130's-140's with minimal variability. Sinus tach vs SVT. Tried to have patient do valsalva maneuvers without success. Primary team notified and patient to go to telemetry postop. Hospitalist saw patient in recovery and agreed with IVF therapy and more monitored postop unit. I felt his tachycardia was SVT in nature and therefore gave 10mg of IV esmolol in recovery at bedside. HR went into 70's and repeat ECG showed NSR. Patient stable and ready for transfer.
[2025-05-01] MEDS: METOPROLOL TARTRATE 1 MG/ML VIAL IV STA (19:02)
[2025-05-01] MEDS: METOPROLOL TARTRATE 1 MG/ML VIAL IV ONE (19:07)
[2025-05-01] MEDS: HYDROmorphone INJ 2 MG/ML SYR/VIAL IV PRN (19:28)
--- NOTE | 2025-05-01 19:51 | Fluoroscopy Report ---
Frontal and lateral intraoperative fluoroscopic images of the lower thoracic and lumbar spine No comparison Impression: There are vertical stabilization rods and transpedicular screws spanning multiple thoracic and vertebral bodies. The visualized orthopedic hardware appears intact and well aligned. Electronically signed by Stepan Spangler 05-01-2025 7:51 PM
[2025-05-01 19:56] LABS: Anion Gap 10.0 (3-11); Blood Urea Nitrogen 28.0 mg/dl (6-23); Calcium 8.4 mg/dl (8.6-10.3); Carbon Dioxide 22.0 mmol/L (21-32); Chloride 102.0 mmol/L (98-107); Creatinine Clr Calc Pharmacy 60.2 ml/min; Glucose 342.0 mg/dl (70-99(Fasting)); Magnesium 1.8 mg/dl (1.7-2.4); Potassium 4.7 mmol/L (3.5-5.1); Sodium 134.0 mmol/L (136-145)
[2025-05-01] MEDS ORDERED: SOD PHOSPHATE/SOD BIPHOSPHATE ENEMA 132 ML BTL PR PRN (19:57)
[2025-05-01] MEDS ORDERED: FAMOTIDINE 20 MG TAB PO PRN (19:57)
[2025-05-01] MEDS ORDERED: MAGNESIUM HYDROXIDE SUSP 30 ML UDC PO PRN (19:57)
[2025-05-01] MEDS ORDERED: NALOXONE HCL 0.4 MG/1 ML VIAL/CARP IV PRN (19:57)
[2025-05-01] MEDS ORDERED: DO NOT ADMINISTER FLU VACCINE PRN (19:57)
[2025-05-01] MEDS ORDERED: LORazepam 0.5 MG TAB PO PRN (19:57)
[2025-05-01] MEDS ORDERED: DO NOT ADMINISTER PNEUMOCOCCAL VACCINE PRN (19:57)
[2025-05-01] MEDS ORDERED: diphenhydrAMINE Capsule 25 MG CAP PO PRN (19:57)
[2025-05-01] MEDS ORDERED: HYDROmorphone INJ 1 MG/ML SYRINGE IV PRN (19:57)
[2025-05-01] MEDS ORDERED: ALUMINUM/MAGNESIUM SUSP 30 ML UDC PO PRN (19:57)
[2025-05-01] MEDS ORDERED: ONDANSETRON 4 MG OD TAB PO PRN (19:57)
[2025-05-01] MEDS: SODIUM CHLORIDE 0.9% 1,000 ML IV SCH (20:31)
[2025-05-01] MEDS: DOCUSATE SODIUM/SENNA 50/8.6MG TAB PO SCH (20:38)
[2025-05-01] MEDS: LANTUS PER UNIT CHARGE SC SCH (20:38)
[2025-05-01] MEDS: ACETAMINOPHEN 500 MG TAB PO PRN (20:38)
[2025-05-02] MEDS: INSULIN ASPART PER UNIT CHARGE SC SCH (03:42)
[2025-05-02 06:24] LABS: Hematocrit (blood only) 44.4 % (42.0-52.0); Hemoglobin 14.0 g/dl (14.0-18.0); Mean Corpuscular Hemoglobin 28.5 pg (25.0-34.0); Mean Corpuscular Volume 90.4 fL (80.0-100.0); Platelet Count 256 K/uL (130-400); RDW Standard Deviation 46.8 fL (36.4-46.3); Red Blood Count 4.91 M/uL (4.70-6.10); White Blood Count 14.94 K/ul (4.8-10.8)
[2025-05-02] MEDS: POLYETHYLENE (MIRALAX) 17 GM PACK PO SCH (06:26)
[2025-05-02] MEDS: ONDANSETRON INJ 2 MG/ML 2 ML VIAL IV PRN (06:39)
[2025-05-02 06:45] LABS: Immature Granulocytes # (auto) 0.09 K/uL (0.01-0.20); Immature Granulocytes % (auto) 0.6 %; RBC Morphology Unremarkable
[2025-05-02 06:54] LABS: Anion Gap 9.0 (3-11); Blood Urea Nitrogen 39.0 mg/dl (6-23); Calcium 8.2 mg/dl (8.6-10.3); Carbon Dioxide 24.0 mmol/L (21-32); Chloride 103.0 mmol/L (98-107); Creatinine Clr Calc Pharmacy 47.3 ml/min; Glucose 279.0 mg/dl (70-99(Fasting)); Potassium 5.3 mmol/L (3.5-5.1); Sodium 136.0 mmol/L (136-145)
[2025-05-02] MEDS: METOCLOPRAMIDE HCL INJ 5 MG/ML 2 ML VIAL IV PRN (07:25)
--- NOTE | 2025-05-02 07:31 | Hospitalist Progress Note ---
Date of Service May 02, 2025 Assessment & Plan (1) Neurogenic claudication due to lumbar spinal stenosis: (2) Abnormal chest xray: (3) Diabetes mellitus, type 2: (4) Lumbar radiculopathy: Plan This is a 75 y/o male with insulin-requiring DM2 and other history as outlined who presented to the ED today with progressive lower back pain radiating down his left leg. Severe lower back pain Lumbar stenosis with radiculopathy Outpatient MRI: large inferiorly extruded and possibly sequestered disc fragment eccentric to the left at L1-L2 with impingement on left nerve roots and moderate central canal stenosis, cauda equina likely tethered at this level POD#1 s/p decompression with bilateral medial facetectomies and foraminotomies T12-L1 L1-L2 with excision of herniated free fragment L1-L2, posterior spinal fusion T11-L2 ... by Dr. Roman Per ortho for pain control, wound care, anticoagulation and activities Continue incentive spirometry, PT/OT when appropriate Monitor H&H - hgb 14 today (pre-op 16, EBL 200ml) - asymptomatic, repeat CBC in AM Post-op tachycardia Noted to have narrow complex tachycardia in PACU following surgery with HR 130- 140s around 1730, resolved after 10mg Esmolol and fluids Tele reviewed once on 4th floor - atrial tachycardia around 2044 with HR 120s, resolved by 0 and has remained NSR 70-80s, asymptomatic ECG this morning showing sinus rhythm with 1st degree block Continue monitoring, consider cardiology consult if arrhythmia recurs Post-op N/V Emesis x 2 post-op, dyspepsia Started IV Pepcid, Protonix , PRN Phenergan - significantly improved RAFAEL Cr 1.69 (from 1.3 yesterday), previous Cr 1-1.3 Likely pre-renal 2/2 PO losses LR @ 100, repeat BMP this evening at 2000 Hyperkalemia K 5.3 this AM, started on IV fluids Low K diet Repeat BMP this evening Poorly controlled Insulin-requiring DM2 Basal/bolus insulin during admission, receiving IV decadron - glycemic pharmacist consulted Diabetic diet A1c 10 BSG ACHS Abnormal CXR Mediastinal lymphadenopathy Pulmonary Nodules Admitted CXR abnormal with widened mediastinum of unclear etiology. Pt denies cardiac or respiratory complaints, no history of aortic aneurysm CTA chest w/wo con ordered - no aortic aneurysm, cardiomegaly, vasc congestion and reticular changes noted in periphery of lungs likely representing mild fibrotic change Obtained 2D echo given cardiomegaly - moderate concentric LVH, EF 60-65%, grade 1 diastolic dysfunction Recommend follow up with cardiology and Pulmonology through [facility] Will need repeat CT chest as outpatient to ensure resolution. R thyroid nodule Noted on CTA chest - recommend nonemergent thyroid ultrasound as outpatient HTN - pt reports not an active issue, no longer on anti-hypertensive medication, follows with the [facility]. Optimize pain control DVT Ppx: SCDs per primary service PCP: [facility] Dispo: Admitted to med/surg Patient seen in collaboration with Dr. Burdick. Please see addendum. Thank you for this consultation. We will follow the patient with you during their hospital stay. You can reach [facility] via [employer]. I spent a total of 50 minutes coordinating, documenting, and providing care for this patient excluding time spent in the performance of separately billed services or time spent by another provider/QHP. Admission and Anticipated Discharge Date Admission Date: April 30, 2025 Supervising Physician Co-Signing Physician Notes Patient is seen and examined at bedside. No recurrence of SVT this morning. Rate is controlled in sinus on monitor. Patient admits to have nausea vomiting this morning. Also states having some back pain at surgical site. His symptoms improved after receiving Pepcid. On exam patient is obese, no apparent distress, normocephalic atraumatic, EOMI, normal breath sounds, clear to auscultation, S1-S2, no murmur, no pedal edema, abdomen soft, nontender, bowel sounds, alert, awake, oriented, grossly no focal deficits. Lumbar spinal stenosis with radiculopathy s/p decompression, fusion surgery. Monitor for postop anemia. Pain control, activity, wound care per primary team. Continue PT OT, fall precautions. Postoperative tachycardia much improved, sinus currently. Monitor, replace electrolytes as needed. Gentle IV fluids given RAFAEL. Monitor renal function, avoid nephrotoxic agents as able. Expect hyperkalemia to resolve with IV fluids. Monitor. Needs further workup as outpatient for mediastinal lymphadenopathy, pulmonary nodules and right thyroid nodule as outpatient. I personally interviewed and examined the patient at bedside. I have reviewed the advanced practitioner's documentation on the date of service referred in note and agree with plan. Patient's care is coordinated with Leatha Malloy PA-C. Please refer to the documentation above for details of patient's presentation and for discussion of other issues. I spent a total of 25minutes coordinating, documenting, and providing care for this patient excluding time spent in the performance of separately billed services or time s pent by another provider/QHP. Subjective Seen and examined in 451-2. Post op last evening had SVT run while in PACU. Evaluated by data communications software consultant and returned to NSR in 70s following 10m Esmolol and IV fluids. Monitor remained in NSR since then. Nauseated overnight with emesis x 2. This morning small amount light brown in color. Improved with antiemetics. Surgical site pain 5/10. No F/C, CP/SOB, abd pain, dysuria. No post op flatus yet. Review of Systems Review of Systems: At least ten systems reviewed and negative except as noted in the HPI. Physical Exam Physical Exam: Gen: WD/WN, NAD, resting in bed, appears ill, A&Ox3 HEENT: Normocephalic, atraumatic, dry mucous membranes of oropharynx Lung: Clear to Auscultation bilaterally Heart: Regular rate, regular rhythm Abdomen: Soft, NT, ND +BS x 4 Extremities: Thoracic/lumbar spinal dressing c/d/i, JOCELYNE drain visualized, no BLE edema, + SCDs Skin: Warm, no rash Results & Data Results & Data Vital Signs (Past 12 Hours) Vital Signs Temp Pulse Pulse Resp BP Pulse Ox O2 Del Method 05/02/25 07:12 36.7 C 82 22 147/66 H 92 Room Air 05/02/25 03:50 36.5 C 87 18 119/81 90 Room Air 05/02/25 00:00 36.4 C L 94 H 18 109/70 91 Nasal Cannula 05/01/25 21:53 93 H 05/01/25 21:27 36.5 C 120 H 18 106/62 93 Nasal Cannula 05/01/25 20:13 94 H 05/01/25 20:13 Nasal Cannula 05/01/25 19:57 36.4 C L 94 H 18 100/58 L 92 Nasal Cannula 05/01/25 19:45 77 13 108/74 96 Nasal Cannula O2 Flow Rate 05/02/25 07:12 05/02/25 03:50 05/02/25 00:00 2.0 05/01/25 21:53 05/01/25 21:27 3 05/01/25 20:13 05/01/25 20:13 3 05/01/25 19:57 2 05/01/25 19:45 3 Laboratory Results Short CBC 05/02/25 Range/Units 05:21 WBC 14.94 H (4.8-10.8) K/ul Hgb 14.0 (14.0-18.0) g/dl Hct 44.4 (42.0-52.0) % Plt Count 256 (130-400) K/uL BMP 05/01/25 05/02/25 18:49 05:21 Sodium 134 L 136 Potassium 4.7 5.3 H Chloride 102 103 Carbon Dioxide 22 24 BUN 28 H 39 H Creatinine 1.33 1.69 H D Glucose 342 H* 279 H Calcium 8.4 L 8.2 L Diagnostic Findings Chest X-Ray 04/30/25 14:19 Exam: Chest x-ray one view portable. Reason for exam: Surgery preop screening. Previous studies: 02/01/2024. FINDINGS: Heart size is increased further with a moderate cardiomegaly now present. Increasing central pulmonary venous hypertension is present as well with the cephalization and distention of the central vessels. Marked abnormal widening of the mid and superior mediastinum are now present, newly appearing since the previous study. The peripheral lung zones show no definite acute infiltrate, collapse or edema. No large pleural effusion seen. IMPRESSION: 1. Increasingly severe cardiomegaly with significantly increased pulmonary venous hypertension as compared to the previous study of 06/02/2024. 2. Development of marked abnormal widening of the superior mediastinum not seen on the previous study. This could be at least partially vascular congestion, however developing underlying mass, adenopathy or aneurysm cannot be excluded. 3. Further evaluation with CT study of the thorax is indicated for this patient. Electronically signed by Javier Anne 04-30-2025 3:23 PM Chest CTA 04/30/25 15:56 CTA CHEST WITH and WITHOUT CONTRAST: HISTORY: TECHNIQUE: CT angiogram of the chest was obtained with and without intravenous contrast. Coronal and sagittal reformats were created. IV CONTRAST: 100 mL of OMNIPAQUE 300 COMPARISON: Chest radiograph from same day. FINDINGS: LOWER NECK: Right thyroid nodule measuring 2.5 cm. Recommend nonemergent thyroid ultrasound for evaluation LYMPH NODES: Mildly enlarged mediastinal and hilar lymph nodes are nonspecific. Of note, there is a right hilar lymph node measuring 2.5 cm CARDIOVASCULAR: Cardiac size is enlarged. Coronary artery and valvular calcifications are noted. No aortic aneurysm. LUNGS: The trachea and central bronchi are widely patent. No focal confluent infiltrates are seen. Peribronchial wall thickening. Reticular changes in the periphery likely representing mild fibrotic change. Pulmonary vascular congestion. 4 mm subpleural nodule in the right middle lobe (series 5, image 28). There is a perifissural nodule in the left lower lobe measuring 6 mm (series 7, image 93) PLEURA: There are no pleural effusions. There is no pneumothorax. UPPER ABDOMEN: No acute findings. OSSEOUS STRUCTURES: No acute findings IMPRESSION: Mildly enlarged mediastinal and hilar lymph nodes are nonspecific. Of note, there is a right hilar lymph node measuring 2.5 cm Bronchiolitis. No focal consolidation. Pulmonary nodules measuring up to 6 mm as above. These are nonspecific however metastatic process could be a possibility in a right proper clinical context Right thyroid nodule measuring 2.5 cm. Recommend nonemergent thyroid ultrasound for evaluation Electronically signed by Shawn Jamison 04-30-2025 6:43 PM Lumbar Spine X-Ray 05/01/25 06:56 Frontal and lateral intraoperative fluoroscopic images of the lower thoracic and lumbar spine No comparison Impression: There are vertical stabilization rods and transpedicular screws spanning multiple thoracic and vertebral bodies. The visualized orthopedic hardware appears intact and well aligned. Electronically signed by Stepan Spangler 05-01-2025 7:51 PM (3) Diabetes mellitus, type 2 Diabetes mellitus complication status: without complication Diabetes mellitus remote computer terminal operator insulin use: with remote computer terminal operator use Qualified Code(s): E11.9 - Type 2 diabetes mellitus without complications; Z79.4 - longterm (current) use of insulin
[2025-05-02] MEDS: LANTUS PER UNIT CHARGE SC SCH ×2 (08:37→21:10)
[2025-05-02] MEDS: dexAMETHasone 6 MG in SYRINGE 0 ML IV SCH (08:38)
[2025-05-02] MEDS: ACETAMINOPHEN 1,000 MG/100 ML VIAL IV PRN (08:43)
--- NOTE | 2025-05-02 09:05 | Pharmacy Report ---
Pharmacy Glycemic Short Note 2 - Date of Service May 02, 2025 - Glycemic Short BSG Results (Last 24 hours): 05/01/25 05/01/25 05/01/25 11:54 17:01 18:49 Glucose 342 H* POC Glucose 153 H 236 H 05/01/25 05/01/25 05/02/25 20:06 23:14 03:36 Glucose POC Glucose 308 H* 297 H 273 H 05/02/25 05/02/25 05:21 07:15 Glucose 279 H POC Glucose 232 H OUTPATIENT ANTIDIABETIC REGIMEN: * Novolin 70/30 - SSI TID HbA1c: 10% (05/01/25) ASSESSMENT: 05/02/25: * Blood sugars unsurprisingly elevated postoperatively as SC basal/bolus was not given until ~HS * Ordered dexamethasone 6 mg IV daily x 3 doses starting today * Will continue with aggressive SC basal/bolus regimen today 05/01/25: * LN is a 75 year old male who presented w/ lumbar disc herniation w/ radiculopathy scheduled for urgent decompression/fusion * Dexamethasone 8 mg IV x 1 ordered in OR * Patient still in OR at time of this note, will plan for basal postoperatively * Blood sugars elevated today as well as HbA1c PLAN FOR INPATIENT GLYCEMIC CONTROL: * Hold pre-mixed insulin * Basal insulin * Lantus 40 units SC daily w/ IV dexamethasone * Lantus 0-10-15 units SC HS x 1 this evening to allow for more basal if still hyperglycemic * Bolus insulin * NovoLog per scale ACHS or Q6hrs while NPO * Goal Range: Low 110 mg/dL - High 140 mg/dL * Correction Factor: 15 mg/dL/unit * Nutritional / Prandial insulin per carb ratio of 1 unit per 4 grams CHO consumed
[2025-05-02] MEDS: LACTATED RINGER'S 1,000 ML IV SCH (09:17)
[2025-05-02] MEDS: PROMETHAZINE 12.5 MG/50.5 ML BAG IV PRN (09:40)
[2025-05-02] MEDS: FAMOTIDINE 20MG IV PUSH 20 MG/5 ML SYR IV STA (09:40)
[2025-05-02] MEDS: PANTOprazole 40 MG/10 ML SYR IV SCH (10:30)
[2025-05-02] MEDS: ACETAMINOPHEN 500 MG TAB PO SCH (12:46)
--- NOTE | 2025-05-02 14:23 | Orthopedic Progress Note ---
Date of Service May 02, 2025 Assessment & Plan (1) Lumbar radiculopathy: Plan: At this time continue physical therapy monitor his JOCELYNE output hopefully discharge home in the next few days. Admission and Anticipated Discharge Date Admission Date: April 30, 2025 Subjective Back pain controlled leg symptoms markedly improved. Physical Exam Physical Exam: Patient is in the chair at the bedside. Discussing the testing. Is comfortable. Results & Data Vital Signs (Past 12 Hours) Vital Signs Temp Pulse Resp BP Pulse Ox O2 Del Method 05/02/25 11:45 36.9 C 71 20 125/73 90 Room Air 05/02/25 07:12 36.7 C 82 22 147/66 H 92 Room Air 05/02/25 03:50 36.5 C 87 18 119/81 90 Room Air Queries Orthopedic Spine Obesity: Yes
[2025-05-02 20:24] LABS: Anion Gap 4.0 (3-11); Blood Urea Nitrogen 36.0 mg/dl (6-23); Calcium 8.3 mg/dl (8.6-10.3); Carbon Dioxide 26.0 mmol/L (21-32); Chloride 103.0 mmol/L (98-107); Creatinine Clr Calc Pharmacy 55.6 ml/min; Glucose 209.0 mg/dl (70-99(Fasting)); Potassium 4.8 mmol/L (3.5-5.1); Sodium 133.0 mmol/L (136-145)
[2025-05-03 06:09] LABS: Hematocrit (blood only) 38.0 % (42.0-52.0); Hemoglobin 12.7 g/dl (14.0-18.0); Mean Corpuscular Hemoglobin 29.5 pg (25.0-34.0); Mean Corpuscular Volume 88.4 fL (80.0-100.0); Platelet Count 241 K/uL (130-400); RDW Standard Deviation 45.4 fL (36.4-46.3); Red Blood Count 4.30 M/uL (4.70-6.10); White Blood Count 14.44 K/ul (4.8-10.8)
[2025-05-03 06:25] LABS: Anion Gap 5.0 (3-11); Blood Urea Nitrogen 29.0 mg/dl (6-23); Calcium 8.2 mg/dl (8.6-10.3); Carbon Dioxide 28.0 mmol/L (21-32); Chloride 106.0 mmol/L (98-107); Creatinine Clr Calc Pharmacy 64.5 ml/min; Glucose 56.0 mg/dl (70-99(Fasting)); Potassium 4.1 mmol/L (3.5-5.1); Sodium 139.0 mmol/L (136-145)
[2025-05-03] MEDS: CARBOHYDRATES FOR HYPOGLYCEMIA PO PRN (07:58)
--- NOTE | 2025-05-03 08:31 | Orthopedic Progress Note ---
Date of Service May 03, 2025 Assessment & Plan (1) Lumbar radiculopathy: Plan: At this time we will continue physical therapy monitor his JOCELYNE operatively discharge home the next few days. Admission and Anticipated Discharge Date Admission Date: April 30, 2025 Subjective Patient's back pain is controlled. Leg symptoms improved Physical Exam Physical Exam: Patient is currently in bed. Is comfortable. The strength testing. Results & Data Vital Signs (Past 12 Hours) Vital Signs Temp Pulse Pulse Resp BP Pulse Ox O2 Del Method 05/03/25 07:08 36.2 C L 60 20 128/72 93 Room Air 05/03/25 03:00 36.6 C 66 18 122/70 96 Room Air 05/02/25 22:31 36.6 C 64 18 125/67 94 Room Air 05/02/25 21:42 68 Queries Orthopedic Spine Obesity: Yes
--- NOTE | 2025-05-03 08:54 | Pharmacy Report ---
Pharmacy Glycemic Short Note 2 - Date of Service May 03, 2025 - Glycemic Short BSG Results (Last 24 hours): 05/02/25 05/02/25 05/02/25 11:48 16:54 19:51 Glucose 209 H POC Glucose 224 H 179 H 05/02/25 05/03/25 05/03/25 20:07 05:33 07:52 Glucose 56 L POC Glucose 172 H 60 L* 05/03/25 05/03/25 07:54 08:16 Glucose POC Glucose 51 L* 70 OUTPATIENT ANTIDIABETIC REGIMEN: * Novolin 70/30 - SSI TID HbA1c: 10% (05/01/25) ASSESSMENT: 05/03/25: * Blood sugars again elevated yesterday, but improved * Received 50 units of basal and 25 units of prandial/correctional bolus * Unexpected hypoglycemia this morning (51 mg/dL) * Anticipate patient will still require basal, but will reduce significantly today * Continues on dexamethasone 6 mg IV daily 05/02/25: * Blood sugars unsurprisingly elevated postoperatively as SC basal/bolus was not given until ~HS * Ordered dexamethasone 6 mg IV daily x 3 doses starting today * Will continue with aggressive SC basal/bolus regimen today 05/01/25: * LN is a 75 year old male who presented w/ lumbar disc herniation w/ radiculopathy scheduled for urgent decompression/fusion * Dexamethasone 8 mg IV x 1 ordered in OR * Patient still in OR at time of this note, will plan for basal postoperatively * Blood sugars elevated today as well as HbA1c PLAN FOR INPATIENT GLYCEMIC CONTROL: * Hold pre-mixed insulin * Basal insulin - ~40% of yesterday's dose * Lantus 20 units SC x 1 this afternoon * Reassess in AM w/ last dose of dexamethasone * Bolus insulin * NovoLog per scale ACHS or Q6hrs while NPO * Goal Range: Low 110 mg/dL - High 140 mg/dL * Correction Factor: 15 mg/dL/unit * Nutritional / Prandial insulin per carb ratio of 1 unit per 5 grams CHO consumed
[2025-05-03] MEDS: BACLOFEN 10 MG TAB PO PRN (10:44)
[2025-05-03] MEDS: LANTUS PER UNIT CHARGE SC ONE (12:23)
--- NOTE | 2025-05-03 15:56 | Hospitalist Progress Note ---
Date of Service May 03, 2025 Assessment & Plan (1) Neurogenic claudication due to lumbar spinal stenosis: (2) Abnormal chest xray: (3) Diabetes mellitus, type 2: (4) Lumbar radiculopathy: Plan This is a 75 y/o male with insulin-requiring DM2 and other history as outlined who presented to the ED today with progressive lower back pain radiating down his left leg. Severe lower back pain Lumbar stenosis with radiculopathy Acute postoperative acute blood loss anemia Outpatient MRI: large inferiorly extruded and possibly sequestered disc fragment eccentric to the left at L1-L2 with impingement on left nerve roots and moderate central canal stenosis, cauda equina likely tethered at this level S/P decompression with bilateral medial facetectomies and foraminotomies T12-L1 L1-L2 with excision of herniated free fragment L1-L2, posterior spinal fusion T11-L2 ... by Dr. Roman on 05/01/25 Per ortho for pain control, wound care, anticoagulation and activities Continue incentive spirometry Bowel regimen to prevent constipation Monitor CBC Continue PT OT Post-op tachycardia--Resolved Noted to have narrow complex tachycardia in PACU following surgery with HR 130- 140s around 1730, resolved after 10mg Esmolol and fluids Tele reviewed once on 4th floor - atrial tachycardia around 2044 with HR 120s, resolved by 0 and has remained NSR 70-80s, asymptomatic ECG this morning showing sinus rhythm with 1st degree block Continue to monitor Post-op N/V--resolved Emesis x 2 post-op, dyspepsia Started IV Pepcid, Protonix , PRN Phenergan - significantly improved Acute kidney injury Creatinine levels improved to 1.2 Received IV fluids Monitor renal function Avoid nephrotoxic agents as able Hyperkalemia--resolved Monitor Poorly controlled Insulin-requiring DM2 Basal/bolus insulin during admission, receiving IV decadron - glycemic pharmacist consulted Diabetic diet A1c 10 BSG ACHS Monitor blood glucose levels closely Abnormal CXR Mediastinal lymphadenopathy Pulmonary Nodules Admitted CXR abnormal with widened mediastinum of unclear etiology. Pt denies cardiac or respiratory complaints, no history of aortic aneurysm CTA chest w/wo con ordered - no aortic aneurysm, cardiomegaly, vasc congestion and reticular changes noted in periphery of lungs likely representing mild fibrotic change Obtained 2D echo given cardiomegaly - moderate concentric LVH, EF 60-65%, grade 1 diastolic dysfunction Recommend follow up with cardiology and Pulmonology through [place] Will need repeat CT chest as outpatient to ensure resolution. R thyroid nodule Noted on CTA chest - recommend nonemergent thyroid ultrasound as outpatient HTN Currently not on any medications On tamsulosin for BPH Monitor blood pressure DVT Ppx: SCDs, aspirin 81 mg BID per primary service PCP: JEAN Dispo: As per primary team Admission and Anticipated Discharge Date Admission Date: April 30, 2025 Subjective Patient is seen and examined at bedside Admits to have lower back pain at surgical site Also reports having hiccups Had PT evaluation earlier today Denies any chest pain, dyspnea, nausea, vomiting, abdominal pain No other complaints Review of Systems Review of Systems: All systems reviewed & are unremarkable except as noted in Subjective Physical Exam Physical Exam: Physical Exam: Vitals signs as noted above General Appearance: Obese, no apparent distress Head: normocephalic, Atraumatic Eyes: normal inspection, EOMI Neck: supple, Trachea midline Respiratory/Chest: Normal breath sounds, CTA, No accessory muscle use Cardiovascular: S1, S2, No murmur Abdomen/GI:Soft, Non tender, Bowel sounds present Back: Surgical site in dressing Extremities/Musculoskeletal:normal inspection, no edema Neurologic/Psych:AAOX3, grossly no focal neurological deficits Skin: normal color, warm Results & Data Results & Data Vital Signs (Past 12 Hours) Vital Signs Temp Pulse Pulse Resp BP Pulse Ox O2 Del Method 05/03/25 11:30 36.8 C 69 19 125/66 91 Room Air 05/03/25 10:34 68 05/03/25 07:08 36.2 C L 60 20 128/72 93 Room Air Laboratory Results Short CBC 05/03/25 Range/Units 05:33 WBC 14.44 H (4.8-10.8) K/ul Hgb 12.7 L (14.0-18.0) g/dl Hct 38.0 L (42.0-52.0) % Plt Count 241 (130-400) K/uL BMP 05/02/25 05/03/25 19:51 05:33 Sodium 133 L 139 Potassium 4.8 4.1 Chloride 103 106 Carbon Dioxide 26 28 BUN 36 H 29 H Creatinine 1.44 H 1.24 Glucose 209 H 56 L Calcium 8.3 L 8.2 L (3) Diabetes mellitus, type 2 Diabetes mellitus extermination inspector insulin use: with extermination inspector use Diabetes mellitus complication status: without complication Qualified Code(s): E11.9 - Type 2 diabetes mellitus without complications; Z79.4 - FDC (current) use of insulin
[2025-05-03 19:27] VITALS: RESP 18
[2025-05-04 02:29] VITALS: TEMP 97.9
[2025-05-04 05:59] LABS: Hematocrit (blood only) 35.9 % (42.0-52.0); Hemoglobin 11.9 g/dl (14.0-18.0); Mean Corpuscular Hemoglobin 29.3 pg (25.0-34.0); Mean Corpuscular Volume 88.4 fL (80.0-100.0); Platelet Count 230 K/uL (130-400); RDW Standard Deviation 45.0 fL (36.4-46.3); Red Blood Count 4.06 M/uL (4.70-6.10); White Blood Count 11.78 K/ul (4.8-10.8)
[2025-05-04 06:16] LABS: Anion Gap 5.0 (3-11); Blood Urea Nitrogen 26.0 mg/dl (6-23); Calcium 8.0 mg/dl (8.6-10.3); Carbon Dioxide 27.0 mmol/L (21-32); Chloride 106.0 mmol/L (98-107); Creatinine Clr Calc Pharmacy 67.2 ml/min; Glucose 135.0 mg/dl (70-99(Fasting)); Potassium 4.1 mmol/L (3.5-5.1); Sodium 138.0 mmol/L (136-145)
[2025-05-04 07:38] VITALS: BP 158/74; O2SAT 93
--- NOTE | 2025-05-04 08:13 | Discharge Summary ---
Date of Service May 04, 2025 Admission HPI Per Admitting Provider This is a 75-year-old male known to me that presents with a steady decline in status over the past several weeks. Denies any significant trauma fall or event. He is noting severe back pain radiating predominantly in the left anterior medial thigh. He has noted loss of bowel function over the past few days. He can only walk a few feet before he must sit down secondary to the severe pain. In light of his marked functional decline he returned to the hospital and is admitted for workup and surgical intervention. Principal Diagnosis Lumbar disc herniation with radiculopathy Discharge Data Allergies Allergy/AdvReac Type Severity Reaction Status Date / Time No Known Allergies Allergy Mild Verified 05/01/25 13:08 Consultations 04/30/25 14:19 ED Decision to Admit Stat 04/30/25 15:45 Consult Internal Medicine Routine Procedures Performed Operation Date: 05/01/25 07:00 Actual Procedures p T11-L2 Decompression and Fusion(Not Applicable) - Nick Roman DO Ordered Studies 04/30/25 15:56 CTA chest wo/w con [CT angio chest wo/w con] Urgent 05/01/25 06:56 FL lumbar spine 2-3V Routine Diabetes Follow up Diabetes Follow-up Needed for HgbA1c >9% Hospital Course (1) Lumbar disc herniation with radiculopathy: Patient was admitted to the hospital urgently with a decline in neurologic function. He underwent urgent lumbar decompression and fusion. He tolerated this well. Postoperatively he progressed appropriately. JOCELYNE drain decreasing. Tolerating physical therapy. Improvement in strength. Subsidy discharged home. Discharge orders instructions found in chart for further review. Total Time Total Time Spent Total Time Spent (In Minutes): 20 minutes Discharge Plan Discharge Items Patient Disposition: Home - Self-Care Reason For Visit: SPINAL STENOSIS Discharge Diagnosis: Lumbar spondylosis with herniated nucleus pulposus and radiculopathy Condition on Discharge: Fair Activity: As commented below Non-emergency contact: Primary Care Provider Call non-emergency contact if: you have any medication questions Follow-up/Referrals: Jordy Viera, [employer] [Primary Care Provider] - Diet: Regular Addtl Attending Provider Instructions: ACTIVITY RECOMMENDATIONS: SELF CARE INSTRUCTIONS AFTER THORACIC/LUMBAR FUSIONS 1. You may walk to your tolerance. It is good exercise for your legs and back. Expect some back and intermittent leg aches and pains. 2. You may perform "counter-top" level activities (make a sandwich, obi with a project, etc.). 3. No bending or lifting of more than 10 pounds or back twisting of any nature (roll like a log when turning in bed). 4. You may ride in a car for 20-30 minutes at a time. No driving until after your first visit with your doctor. 5. Frequent changes of position and restricting sitting to 30 minutes at a time will help limit the amount of back spasms and stiffness you may experience. 6. You may discontinue the use of ambulatory aids (cane, crutches, etc.) once your strength and confidence allow. 7. You may winemaker the shower and let water strike your incision when you arrive home at least once daily. Do not take a tub bath, sit in a hot tub or go into a swimming pool until after your first recheck in the office. 8. You may resume previous diet. SPECIAL CARE INSTRUCTIONS: VERY IMPORTANT TO READ AND REVIEW A. Your surgical incision has been closed with a cosmetic suture under the skin that will dissolve in about 6 weeks. In 14 days, you can use a pair of clean scissors and cut the suture that is left outside of the skin at the ends of your incision. 1. The small skin tapes can be removed 7 days after surgery if they have not fallen off by that point. 2. You may keep the wound open to air as much as possible to promote healing after post-op day number 5 unless told otherwise by your doctor. 3. If you think the wound looks like it is becoming infected (redness or worsening drainage) and/or you are experiencing fever, chill or worsening back pain and muscle spasms, contact the office so that we may evaluate you as soon as possible. B. Complications are uncommon, but please contact us if you have any signs or symptoms of: 1. wound infection (fever higher than 102.5 degrees F, redness, separation of wound, drainage, or increasing pain from the incision) 2. blood clots in legs (pain, swelling, redness and warmth in legs) 3. urinary tract infection (fever higher than 102.5 degrees F, burning upon urination or increased frequency of urination) 4. nerve problems (inability to walk on your toes or heels, numbness, loss of bowel or bladder control) 5. any other symptoms that concern you C. Please call the office at if you have any concerns or questions about your operation or recovery. D. No smoking! Smoking drastically decreases the chance of a solid fusion. E. Do not take any anti-inflammatory medications (Indocin, Advil, Motrin, Aspirin, Naprosyn, etc.) as these may inhibit the chance of a solid fusion. Tylenol is okay to take for pain. MANAGING PAIN AFTER SPINAL SURGERY 1. Narcotic medication is intended for short-term use and will be provided for surgical pain. Surgical pain usually lasts for a period of 4-6 weeks. Narcotic medication includes Percocet, Vicodin, Darvocet, Tylenol #3 or Lortab. 2. Longer-term pain is more appropriately treated with non-narcotic medication such as Tylenol ES. 3. Muscle spasm is not appropriately treated with narcotics. Muscle relaxers such as Soma, Flexeril or Skelaxin can be used along with Tylenol ES. 4. Remember that we all live with some "aches and pains". This is not unusual or uncommon after an injury or as we get older. a. Back pain is expected and may include muscle spasms for 4 to 6 weeks after surgery. The pain should gradually improve. If the pain worsens for no apparent reason, please contact the office. b. Intermittent leg pain may also be experienced and should not be concerned about unless it worsens for no apparent reason. If so, please contact the office. 5. We will provide appropriate medication within the normal guidelines of their prescribed use. We will also be very cautious and aware of potential abuse and extended duration of patients' medication needs. a. Pain medications are for your comfort and to assist with sleep and rest so that the tissue can heal. They are not provided in order to return to normal activity and should not be used through the day. To do so or worsening pain at night can result from ongoing tissue damage and development of tolerance to the prescribed medicine. 6. Please allow 2-3 days to process refills. Prescriptions will not be mailed but must be picked up at the office. FOLLOW UP VISIT: Keep your scheduled follow-up appointment. Any questions, please call the office at . Pending Studies at Discharge: No Stand-Alone Forms: My [facility], Smoking Cessation Medications and DC Order Prescriptions: New oxycodone 5 mg tablet 5 mg PO Q6H PRN (Reason: pain) Qty: 30 0RF No Action Novolin 70-30 FlexPen U-100 100 unit/mL (70-30) Insulin Pen See Rx Instructions .ROUTE .COMPLEX Patient Comments: PT STATES WILL ADJUST INSULIN PER BSG LEVELS TID Rx Instructions: Pt follows his own sliding scale based on his blood sugar Discharge Orders: Discharge Order (Routine); Ordered 05/04/25 Ordered By: Nick Mackey/Other Patient Handouts: Managing Type 2 Diabetes Admission Data Admit Date/Time: 04/30/25 14:31 Attending Provider: Nick Roman Admit Provider: Nick Roman Primary Care Provider: Jordy Viera Other Providers: [facility]; Scott Alvarado; Nick Roman; Vika Mercedes; Steve Burdick
[2025-05-04 08:19] VITALS: PULSE 64
[2025-05-04] MEDS: LANTUS PER UNIT CHARGE SC SCH (09:21)
--- NOTE | 2025-05-04 09:38 | Hospitalist Progress Note ---
Date of Service May 04, 2025 Assessment & Plan (1) Neurogenic claudication due to lumbar spinal stenosis: (2) Abnormal chest xray: (3) Diabetes mellitus, type 2: (4) Lumbar radiculopathy: Plan This is a 75 y/o male with insulin-requiring DM2 and other history as outlined who presented to the ED today with progressive lower back pain radiating down his left leg. Severe lower back pain Lumbar stenosis with radiculopathy Acute postoperative acute blood loss anemia Outpatient MRI: large inferiorly extruded and possibly sequestered disc fragment eccentric to the left at L1-L2 with impingement on left nerve roots and moderate central canal stenosis, cauda equina likely tethered at this level S/P decompression with bilateral medial facetectomies and foraminotomies T12-L1 L1-L2 with excision of herniated free fragment L1-L2, posterior spinal fusion T11-L2 ... by Dr. Roman on 05/01/25 Per ortho for pain control, wound care, anticoagulation and activities Continue incentive spirometry Bowel regimen to prevent constipation Monitor CBC Continue PT OT Advised to follow-up with primary care physician in 1 week Post-op tachycardia--Resolved Noted to have narrow complex tachycardia in PACU following surgery with HR 130- 140s around 1730, resolved after 10mg Esmolol and fluids Tele reviewed once on 4th floor - atrial tachycardia around 2044 with HR 120s, resolved by 0 and has remained NSR 70-80s, asymptomatic ECG this morning showing sinus rhythm with 1st degree block Continue to monitor Post-op N/V--resolved Emesis x 2 post-op, dyspepsia Started IV Pepcid, Protonix , PRN Phenergan - significantly improved Acute kidney injury Creatinine levels improved to 1.2 Received IV fluids Monitor renal function Avoid nephrotoxic agents as able Hyperkalemia--resolved Monitor Poorly controlled Insulin-requiring DM2 Basal/bolus insulin during admission, receiving IV decadron - glycemic pharmacist consulted Diabetic diet A1c 10 BSG ACHS Monitor blood glucose levels closely Abnormal CXR Mediastinal lymphadenopathy Pulmonary Nodules Admitted CXR abnormal with widened mediastinum of unclear etiology. Pt denies cardiac or respiratory complaints, no history of aortic aneurysm CTA chest w/wo con ordered - no aortic aneurysm, cardiomegaly, vasc congestion and reticular changes noted in periphery of lungs likely representing mild fibrotic change Obtained 2D echo given cardiomegaly - moderate concentric LVH, EF 60-65%, grade 1 diastolic dysfunction Recommend follow up with cardiology and Pulmonology through [place]. patient agrees with the plan Will need repeat CT chest as outpatient to ensure resolution. R thyroid nodule Noted on CTA chest - recommend nonemergent thyroid ultrasound as outpatient. Patient agrees with the plan HTN Moderate concentric LVH on echo Currently not on any medications On tamsulosin for BPH Advised to follow-up Primary care physician/[employer] for further management of hypertension Patient understands and agrees with the plan DVT Ppx: SCDs, aspirin 81 mg BID per primary service PCP: [place] Dispo: As per primary team Admission and Anticipated Discharge Date Admission Date: April 30, 2025 Subjective Patient is seen and examined at bedside Back pain at surgical site is well-controlled Offers no new complaints today. Denies any chest pain, dyspnea, nausea, vomiting, abdominal pain Review of Systems Review of Systems: All systems reviewed & are unremarkable except as noted in Subjective Physical Exam Physical Exam: Physical Exam: Vitals signs as noted above General Appearance: Obese, no apparent distress Head: normocephalic, Atraumatic Eyes: normal inspection, EOMI Neck: supple, Trachea midline Respiratory/Chest: Normal breath sounds, CTA, No accessory muscle use Cardiovascular: S1, S2, No murmur Abdomen/GI:Soft, Non tender, Bowel sounds present Back: Surgical site in dressing Extremities/Musculoskeletal:normal inspection, no edema Neurologic/Psych:AAOX3, grossly no focal neurological deficits Skin: normal color, warm Results & Data Results & Data Vital Signs (Past 12 Hours) Vital Signs Temp Pulse Pulse Resp BP Pulse Ox O2 Del Method 05/04/25 08:18 64 05/04/25 08:15 36.6 C 62 18 158/74 H 93 05/04/25 07:37 36.6 C 62 18 158/74 H 93 Room Air 05/04/25 02:29 36.6 C 61 18 131/63 95 Room Air 05/03/25 22:38 36.5 C 60 18 135/67 95 Room Air 05/03/25 21:59 63 Laboratory Results Short CBC 05/04/25 Range/Units 05:14 WBC 11.78 H (4.8-10.8) K/ul Hgb 11.9 L (14.0-18.0) g/dl Hct 35.9 L (42.0-52.0) % Plt Count 230 (130-400) K/uL BMP 05/04/25 05:14 Sodium 138 Potassium 4.1 Chloride 106 Carbon Dioxide 27 BUN 26 H Creatinine 1.19 Glucose 135 H Calcium 8.0 L (3) Diabetes mellitus, type 2 Diabetes mellitus complication status: without complication Diabetes mellitus rat exterminator insulin use: with rat exterminator use Qualified Code(s): E11.9 - Type 2 diabetes mellitus without complications; Z79.4 - terminal carman (current) use of insulin
--- NOTE | 2025-05-05 13:53 | Electrocardiogram Report ---
Test Reason : Blood Pressure : */* mmHG Vent. Rate : 142 BPM Atrial Rate : 70 BPM P-R Int : * ms QRS Dur : 82 ms QT Int : 314 ms P-R-T Axes : * -31 68 degrees QTcB Int : 483 ms Supraventricular tachycardia Left axis deviation Nonspecific ST and T wave abnormality Abnormal ECG When compared with ECG of 30-Apr-2025 14:39, Vent. rate has increased by [address] now depressed in Anterolateral leads Nonspecific T wave abnormality has replaced inverted T waves in Inferior leads Nonspecific T wave abnormality now evident in Lateral leads Confirmed by Robinson Novoa ([id number]) on 05/05/2025 1:52:36 PM Referred By: REFERRED SELF Confirmed By: Robinson Novoa
--- NOTE | 2025-05-05 13:54 | Electrocardiogram Report ---
Test Reason : Blood Pressure : */* mmHG Vent. Rate : 84 BPM Atrial Rate : 84 BPM P-R Int : 208 ms QRS Dur : 82 ms QT Int : 386 ms P-R-T Axes : 9 -26 -32 degrees QTcB Int : 456 ms Normal sinus rhythm Minimal voltage criteria for LVH, may be normal variant Possible Lateral infarct (cited on or before 01-May-2025) Abnormal ECG When compared with ECG of 01-May-2025 17:46, (unconfirmed) Vent. rate has decreased by [address] no longer depressed in Lateral leads Confirmed by Robinson Novoa ([id number]) on 05/05/2025 1:53:58 PM Referred By: REFERRED SELF Confirmed By: Robinson Novoa
--- NOTE | 2025-05-05 13:54 | Electrocardiogram Report ---
Test Reason : Blood Pressure : */* mmHG Vent. Rate : 130 BPM Atrial Rate : 131 BPM P-R Int : 160 ms QRS Dur : 94 ms QT Int : 332 ms P-R-T Axes : * -25 -89 degrees QTcB Int : 488 ms Sinus tachycardia Minimal voltage criteria for LVH, may be normal variant Possible Lateral infarct , age undetermined Abnormal ECG When compared with ECG of 01-May-2025 17:45, (unconfirmed) Inverted T waves have replaced nonspecific T wave abnormality in Inferior leads Nonspecific T wave abnormality no longer evident in Lateral leads Confirmed by Robinson Novoa ([id number]) on 05/05/2025 1:53:30 PM Referred By: REFERRED SELF Confirmed By: Robinson Novoa
--- NOTE | 2025-05-05 14:45 | Electrocardiogram Report ---
Test Reason : Blood Pressure : */* mmHG Vent. Rate : 84 BPM Atrial Rate : 84 BPM P-R Int : 228 ms QRS Dur : 86 ms QT Int : 380 ms P-R-T Axes : 33 -26 3 degrees QTcB Int : 449 ms Sinus rhythm with 1st degree A-V block Minimal voltage criteria for LVH, may be normal variant ( R in aVL ) Borderline ECG When compared with ECG of 01-May-2025 18:37, (unconfirmed) No significant change was found Confirmed by Robinson Novoa ([id number]) on 05/05/2025 2:45:22 PM Referred By: REFERRED SELF Confirmed By: Robinson Novoa
== END 2025-05-04 13:33 | disposition home or self-care (01) | DRG 427 ==
LOC: ED 13:39 → 3W 14:31 → 4W 05-01 19:51

== ENCOUNTER 2025-05-07 09:03 | Inpatient (IN) ==
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
[2025-05-07] MEDS: SODIUM CHLORIDE 0.9% 1,000 ML IV ONE (09:21)
[2025-05-07] MEDS: ONDANSETRON INJ 2 MG/ML 2 ML VIAL IV STA (09:21)
[2025-05-07] MEDS: HYDROmorphone INJ 1 MG/ML SYRINGE IV STA (09:23)
[2025-05-07 09:39] LABS: Hematocrit (blood only) 45.3 % (42.0-52.0); Hemoglobin 14.9 g/dl (14.0-18.0); Immature Granulocytes # (auto) 0.21 K/uL (0.01-0.20); Immature Granulocytes % (auto) 1.5 %; Mean Corpuscular Hemoglobin 29.5 pg (25.0-34.0); Mean Corpuscular Volume 89.7 fL (80.0-100.0); Platelet Count 372 K/uL (130-400); RDW Standard Deviation 45.1 fL (36.4-46.3); Red Blood Count 5.05 M/uL (4.70-6.10); White Blood Count 13.62 K/ul (4.8-10.8)
[2025-05-07 10:02] LABS: Alanine Aminotransferase 13 U/L (7-52); Alkaline Phosphatase 66 U/L (34-104); Anion Gap 12 (3-11); Bilirubin,Total 0.9 mg/dl (0.2-1.0); Blood Urea Nitrogen 23 mg/dl (6-23); Calcium 9.3 mg/dl (8.6-10.3); Carbon Dioxide 26 mmol/L (21-32); Chloride 97 mmol/L (98-107); Glucose 321 mg/dl (70-99(Fasting)); Lipase 13 U/L (11-82); Magnesium 2.1 mg/dl (1.7-2.4); Sodium 135 mmol/L (136-145); Total Protein 7.4 gm/dl (6.0-8.3)
[2025-05-07 10:08] LABS: INR 1.0 (0.9-1.1); Partial Thromboplastin Time 28 Seconds (21-31); Prothrombin Time 10.8 Seconds (9.0-12.0)
--- NOTE | 2025-05-07 10:30 | XRay Report ---
XR chest 1V portable CLINICAL HISTORY: vomiting COMPARISON STUDY: 04/30/2025 FINDINGS: Stable cardiomegaly without pulmonary vascular congestion. Stable widened mediastinum. No c onsolidation or pleural effusion seen. No pneumothorax. IMPRESSION: No acute findings. ACT 112: Negative or not required by law. Electronically signed by: Javier Geller M.D. 05/07/2025 10:28 AM
--- NOTE | 2025-05-07 10:43 | XRay Report ---
KUB HISTORY: vomiting COMPARISON STUDY: None FINDINGS: There is metallic fusion from the lower thoracic spine to the lower lumbar spine. There is a large amount of retained stool at the right colon. No bowel obstruction seen. No gross free air. IMPRESSION: No acute findings. ACT 112: Negative or not required by law. The above report was generated using voice recognition software. It may contain grammatical, syntax o r spelling errors. Electronically signed by: Javier Geller M.D. 05/07/2025 10:41 AM
[2025-05-07] MEDS: HYDROmorphone INJ 0.5 MG/0.5 ML SYR IV STA (10:58)
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
--- NOTE | 2025-05-07 11:35 | Communication Note ---
Date of Service: May 07, 2025 Attending Addendum: Case reviewed with the advanced practitioner. I have personally performed a history and physical examination on the patient. I have reviewed the advanced practitioner's documentation on the date of service referenced in note, and I agree with, and take responsibility for the plan of care. please refer to her notes for full details patient seen and examined, records reviewed by myself as well on exam, patient seen resting in bed, not in distress patient's at bedside states his back pain is better now, 3/10 has been having nausea/vomiting x 2 days, 8-10X, (+) hematemesis last night, multiple times no abdominal pain but having severe acid reflux sensation, and hiccups no BM since Tu, (+) flatus no other symptoms VS noted and reviewed oriented x3, not in distress, speaks in sentences with no effort nor accessory muscle use normal rate, regular rhythm, no murmurs clear breath sounds bilaterally mildly distended, (+) hypoactive bowel sounds, soft, nontender back- dressing in place, no bleeding/discharge as per photo of wound taken by yesterday, wound is healing well, no signs of infection no bipedal edema, erythema, warmth no neuro deficits all labs, imaging noted and reviewed ASSESSMENT AND PLAN> 75 year old male s/p Lumbar Spine Surgery 05/01/[address] Roman, DM 2, history o f reflux esophagitis, presenting with hematemesis HEMATEMESIS UPPER GI BLEED HISTORY OF REFLUX ESOPHAGITIS risk factors: back surgery last week, IV steroids, NSAID use last Hg as of 05/04 11.9 today 14.9, Hg q6h KUB: There is a large amount of retained stool at the right colon. No bowel obstruction seen. No gross free air. CT abd/pelvis: ordered Protonix drip, IV fluids GI consulted MILD TROPONIN ELEVATION Trop 76.4, 2nd and 3rd pending EKG no signs of acute ischemia or infarct recent echo done 05/01 for post op tachycardia showing mild concentric LVH HYPERGLYCEMIA DM 2 A1c 10 BSG 300s mild anion gap 12, no acidosis repeat BMP at 3pm Insulin 8 units Stat Lantus and ISS Pharmacy Glycemic Consult other diagnoses and plan of care as per advanced practitioner's notes I spent a total of 45 minutes coordinating, documenting, and providing care for this patient, excluding time spent in the performance of separately billed services or time spent by another provider/QHP. Mateo Araya MD
[2025-05-07 11:38] LABS: Thyroid Stimulating Hormone 4.128 uIu/ml (0.300-4.500)
[2025-05-07 11:46] LABS: Potassium 4.9 mmol/L (3.5-5.1)
[2025-05-07] MEDS ORDERED: PANTOPRAZOLE BOLUS/DRIP IV STA (12:10)
[2025-05-07] MEDS ORDERED: PANTOprazole 40 MG in DEXTROSE 5% MINI-B 100 ML IV SCH (12:30)
[2025-05-07] MEDS: PANTOprazole 40 MG in DEXTROSE 5% MINI-B 100 ML IV SCH (12:36)
[2025-05-07 13:03] LABS: Appearance Urine Clear (Clear); Bacteria Urine Automated None Seen (None Seen); Cast Urine Automated 0-2 /lpf (0-2); Epithelial Cell Urine Auto 0-2 /hpf (0-2); Glucose Urine UA 3+ (Negative); RBC Urine Automated 0-2 /hpf (0-2); WBC Urine Automated 0-5 /hpf (0-5)
[2025-05-07] MEDS ORDERED: PHARMACY GLYCEMIC MGMT CONSULT PRN (13:18)
[2025-05-07] MEDS ORDERED: GLUCOSE 10 TAB/TUBE PO PRN (13:18)
[2025-05-07] MEDS ORDERED: CARBOHYDRATES FOR HYPOGLYCEMIA PO PRN (13:18)
[2025-05-07] MEDS ORDERED: GLUCOSE 40% GEL 15 GM TUBE PO PRN (13:18)
[2025-05-07] MEDS ORDERED: PROMETHAZINE 12.5 MG/50.5 ML BAG IV PRN (13:18)
[2025-05-07] MEDS ORDERED: GLUCAGON FOR INJ 1 MG VIAL SQ PRN (13:18)
[2025-05-07] MEDS ORDERED: POLYETHYLENE (MIRALAX) 17 GM PACK PO PRN (13:18)
[2025-05-07] MEDS ORDERED: DEXTROSE 50% 50 ML SYRINGE IV PRN (13:18)
[2025-05-07] MEDS: SODIUM CHLORIDE 0.9% 1,000 ML IV SCH (13:57)
[2025-05-07] MEDS: ACETAMINOPHEN 1,000 MG/100 ML VIAL IV SCH (14:32)
[2025-05-07] MEDS: ONDANSETRON INJ 2 MG/ML 2 ML VIAL IV PRN (14:44)
--- NOTE | 2025-05-07 14:46 | Pharmacy Report ---
Pharmacy Glycemic Short Note 2 - Date of Service May 07, 2025 - Glycemic Short BSG Results (Last 24 hours): 05/07/25 05/07/25 09:19 12:24 Glucose 321 H* POC Glucose 267 H OUTPATIENT ANTIDIABETIC REGIMEN: * NovoLog 17-20 units SQ AC (previously NovoLin 70/30, no fill history noted) * HbA1c 10% (05/01/25) ASSESSMENT: * Eduar is a 75 year old male admitted with hematemesis s/p lumbar spine surgery 05/01/25 and a history of T2DM. Pharmacy has been consulted to assist with glycemic management while inpatient. * BSGs elevated upon admission, trending down with fluids, currently on a Protonix gtt, Lantus one time dose per hospitalist, will start a scale twice daily up to a weight based stress of 2. Had required significant basal post surgery, but was also receiving IV steroids, expect some basal need even with current NPO status. * NovoLog at a weight based stress of 2. PLAN FOR INPATIENT GLYCEMIC CONTROL: * Hold outpatient oral diabetes medications * Basal insulin * Lantus 0-20 units SQ BID based on BSG (see eMAR for additional details) * Bolus insulin * NovoLog per scale ACHS or Q6hrs while NPO * Goal Range: Low 110 mg/dL - High 140 mg/dL * Correction Factor: 25 mg/dL/unit * Nutritional / Prandial insulin per carb ratio of 1 unit per 8 grams CHO consumed
[2025-05-07] MEDS: INSULIN ASPART PER UNIT CHARGE SC SCH (14:49)
[2025-05-07] MEDS: SOD PHOSPHATE/SOD BIPHOSPHATE ENEMA 132 ML BTL PR STA (14:52)
[2025-05-07 17:14] LABS: Hematocrit (blood only) 38.1 % (42.0-52.0); Hemoglobin 12.3 g/dl (14.0-18.0)
[2025-05-07 17:31] LABS: Anion Gap 5.0 (3-11); Blood Urea Nitrogen 23.0 mg/dl (6-23); Calcium 8.4 mg/dl (8.6-10.3); Carbon Dioxide 30.0 mmol/L (21-32); Chloride 101.0 mmol/L (98-107); Creatinine Clr Calc Pharmacy 65.8 ml/min; Glucose 252.0 mg/dl (70-99(Fasting)); Potassium 4.8 mmol/L (3.5-5.1); Sodium 136.0 mmol/L (136-145)
[2025-05-07] MEDS: LANTUS PER UNIT CHARGE SQ STA (19:12)
[2025-05-07] MEDS: PANTOPRAZOLE BOLUS/DRIP IV STA (19:12)
[2025-05-07] MEDS: LANTUS PER UNIT CHARGE SQ SCH (21:37)
[2025-05-08] MEDS: HYDROmorphone INJ 0.5 MG/0.5 ML SYR IV PRN (05:19)
[2025-05-08 06:26] LABS: Hematocrit (blood only) 35.8 % (42.0-52.0); Hemoglobin 11.6 g/dl (14.0-18.0)
[2025-05-08 07:26] LABS: Hemoglobin A1C 9.6 % (4.5-5.6)
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
[2025-05-08] MEDS: SENNA 8.6 MG TAB PO SCH (10:59)
[2025-05-08] MEDS: POLYETHYLENE (MIRALAX) 17 GM PACK PO SCH (10:59)
[2025-05-08] MEDS: DOCUSATE SODIUM 100 MG CAP PO SCH ×2 (10:59→20:48)
--- NOTE | 2025-05-08 11:47 | Hospitalist Progress Note ---
Date of Service May 08, 2025 Assessment & Plan (1) Acute upper gastrointestinal bleeding: Plan: Patient is a 74 year old M with a past medical history of hypertension, hyperlipidemia, DM Type II insulin-dependent, lumbar disc herniation with radiculopathy s/p decompression with bilateral medial facetectomies and foraminotomies T12-L2 with excision of herniated free fragment L1-L2, posterior spinal fusion T11-L2 on 05/01/25 presenting with vomiting, hiccups, back pain. 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 Not tolerating pain meds at home. Patient had back surgery in 2022 to L3-L6 and experienced similar symptoms post- operatively. GI scope completed at that time with no further workup or management needed. 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 * Hgb 14 on admission, on recheck down to 12.3-->continue to trend. * NPO for now; IVF at 125 ml/hr * Trop elevated 76.4 and trended down with repeat assessments, now 66.7-- suspect demand ischemia in setting of dehydration * Zofran and phenergan as needed #Low back pain S/P lumbar disc herniation with radiculopathy repair 05/01 * Dilaudid 0.5 mg as needed for severe pain * Acetaminophen 1 gm Q8H scheduled * Transition to po pain meds as able #Constipation * KUB Xray showing large amount of retained stool at the right colon. No bowel obstruction seen. No gross free air. * No BM since previous admission * Fleets enema ordered and given in ED x 1 * c/w bowel regimen * Encourage bowel regimen with narcotic tx #Diabetes Mellitus * SSI while inpatient * ON home glarginine 32 units--> will give 18 units while IP with SSI * Accuchecks Q4H while NPO, transition to ACHS when able * Glycemic consult placed DVT Ppx: Scds Code status: Full PCP: Dr. Viera Dispo: Admit to Med Surg Tele for further management (2) Lumbar disc herniation with radiculopathy: (3) Low back pain: (4) Constipation: (5) Diabetes mellitus, type 2: Admission and Anticipated Discharge Date Admission Date: May 07, 2025 Subjective Patient was seen and examined at bedside. Patient was lying in bed, on room air, NAD. Patient reports no further nausea and vomiting while in the hospital, reports moving bowels several days ago prior to arrival. Patient denies fever/sore throat/cough/chest pain/abdominal pain. Physical Exam Physical Exam: GEN: Healthy appearing, well-developed, NAD. PSYCH: Good Judgment. AOx3. Normal memory, mood, and affect. HEENT -Head: NC/AT; -Eyes: PERRL, EOMI. No discharge or redn ess; -Ears: External ears are normal. -Nose: Normal nares. -Mouth and throat: Dry mucous membranes. Good dentition. NECK: Supple, with no masses. CV: RRR, no m/r/g. LUNGS: CTAB, no w/r/c. ABD: Firm, distended and nontender, hypoactive BS, no masses or organomegaly. : N/A SKIN: Warm, well perfused. No skin rashes or abnormal lesions. MSK: No deformities EXT: No clubbing, cyanosis, or edema. NEURO: CN II-XII grossly intact. Normal muscle strength and tone. No focal deficits. Results & Data Results & Data Vital Signs (Past 12 Hours) Vital Signs Temp Pulse Pulse Resp BP BP Pulse Ox 05/08/25 08:01 36.5 C 47 L 16 117/62 93 05/08/25 05:29 54 L 05/08/25 04:59 36.6 C 53 L 18 123/62 94 05/08/25 00:12 36.6 C 61 16 123/69 96 O2 Del Method 05/08/25 08:01 Room Air 05/08/25 05:29 05/08/25 04:59 Room Air 05/08/25 00:12 Room Air (3) Low back pain Back pain laterality: midline Chronicity: acute Sciatica presence: without sciatica Qualified Code(s): M54.50 - Low back pain, unspecified (4) Constipation Constipation type: drug induced constipation Qualified Code(s): K59.03 - Drug induced constipation (5) Diabetes mellitus, type 2 Diabetes mellitus complication status: without complication Diabetes mellitus mcfp insulin use: with engineering lab technician use Qualified Code(s): E11.9 - Type 2 diabetes mellitus without complications; Z79.4 - halfway (current) use of insulin
[2025-05-08] MEDS: LANTUS PER UNIT CHARGE SQ ONE (14:04)
[2025-05-08] MEDS: INSULIN ASPART PER UNIT CHARGE SC ONE (14:04)
--- NOTE | 2025-05-08 14:38 | Pharmacy Report ---
Pharmacy Glycemic Short Note 2 - Date of Service May 08, 2025 - Glycemic Short BSG Results (Last 24 hours): 05/07/25 05/07/25 05/07/25 16:42 17:02 20:58 Glucose 252 H POC Glucose 227 H 188 H 05/08/25 05/08/25 05/08/25 00:05 05:32 12:40 Glucose POC Glucose 195 H 175 H 204 H OUTPATIENT ANTIDIABETIC REGIMEN: * NovoLog 17-20 units SQ AC (previously NovoLin 70/30, no fill history noted) * HbA1c 10% (05/01/25) ASSESSMENT: 05/08/25: * Blood sugars have been elevated since time of admission, ranging 175-267 mg/dL * Received 31 units of insulin yesterday (18 units of basal and 13 units of correctional bolus) * Patient expressed that he would give himself more insulin at home than he is currently receiving * Somewhat hesitant to be aggressive in light of recent hypoglycemia during earlier admission last week * Patient remains NPO for evaluation of possible GI bleeding * Continues on Protonix gtt (mixed in dextrose) 05/07/25: * Eduar is a 75 year old male admitted with hematemesis s/p lumbar spine surgery 05/01/25 and a history of T2DM. Pharmacy has been consulted to assist with glycemic management while inpatient. * BSGs elevated upon admission, trending down with fluids, currently on a Protonix gtt, Lantus one time dose per hospitalist, will start a scale twice daily up to a weight based stress of 2. Had required significant basal post surgery, but was also receiving IV steroids, expect some basal need even with current NPO status. * NovoLog at a weight based stress of 2. PLAN FOR INPATIENT GLYCEMIC CONTROL: * Hold outpatient oral diabetes medications * Basal insulin * Lantus 10 units SC x 1 this afternoon * Lantus 0-5-10 units SC HS * Bolus insulin * NovoLog per scale ACHS or Q6hrs while NPO * Goal Range: Low 110 mg/dL - High 140 mg/dL * Correction Factor: 20 mg/dL/unit * Nutritional / Prandial insulin per carb ratio of 1 unit per 8 grams CHO consumed
[2025-05-08] MEDS: MoRPHine SULFATE 2 MG/ML CARP IV PRN (16:51)
[2025-05-08] MEDS: LANTUS PER UNIT CHARGE SQ SCH (21:23)
--- NOTE | 2025-05-09 06:09 | Electrocardiogram Report ---
Test Reason : Blood Pressure : */* mmHG Vent. Rate : 85 BPM Atrial Rate : 85 BPM P-R Int : 202 ms QRS Dur : 80 ms QT Int : 370 ms P-R-T Axes : 35 -25 -10 degrees QTcB Int : 440 ms Sinus rhythm Minimal voltage criteria for LVH, may be normal variant ( R in aVL ) Nonspecific T wave abnormality When compared with ECG of 02-May-2025 06:24, No significant change Confirmed by Hadley Reyes ([id number]) on 05/09/2025 6:08:42 AM Referred By: REFERRED SELF Confirmed By: Hadley Reyes
[2025-05-09 07:35] LABS: Hematocrit (blood only) 36.3 % (42.0-52.0); Hemoglobin 11.9 g/dl (14.0-18.0); Mean Corpuscular Hemoglobin 29.6 pg (25.0-34.0); Mean Corpuscular Volume 90.3 fL (80.0-100.0); Platelet Count 310 K/uL (130-400); RDW Standard Deviation 43.8 fL (36.4-46.3); Red Blood Count 4.02 M/uL (4.70-6.10); White Blood Count 10.50 K/ul (4.8-10.8)
[2025-05-09] MEDS: LANTUS PER UNIT CHARGE SQ SCH (08:05)
[2025-05-09 08:53] LABS: Anion Gap 6.0 (3-11); Blood Urea Nitrogen 16.0 mg/dl (6-23); Calcium 8.0 mg/dl (8.6-10.3); Carbon Dioxide 26.0 mmol/L (21-32); Chloride 105.0 mmol/L (98-107); Creatinine Clr Calc Pharmacy 79.3 ml/min; Glucose 127.0 mg/dl (70-99(Fasting)); Magnesium 1.9 mg/dl (1.7-2.4); Potassium 4.0 mmol/L (3.5-5.1); Sodium 137.0 mmol/L (136-145)
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
[2025-05-09] MEDS ORDERED: ATROPINE SULFATE 0.1 MG/ML 10ML SYR IV PRN (09:48)
--- NOTE | 2025-05-09 09:49 | Gastroenterology Progress Note ---
Date of Service May 09, 2025 Assessment & Plan Admission and Anticipated Discharge Date Admission Date: May 07, 2025 Supervising Physician Co-Signing Physician Notes I saw and examined this patient with our nurse practitioner and agree with her assessment and plan. Persistent GI symptoms. Will proceed with endoscopy today for further evaluation. Subjective NPO for EGD this AM. No vomiting this AM. Review of Systems Review of Systems: All other findings negative except as noted in HPI. Physical Exam Respiratory: normal respiratory effort Cardiovascular: Rate/Rhythm: regular rate and regular rhythm Gastrointestinal (Abdomen): Inspection/Auscultation: normal bowel sounds Skin: no rashes, warm and dry Results & Data Results & Data Vital Signs (Past 12 Hours) Vital Signs Temp Pulse Pulse Resp BP BP Pulse Ox 05/09/25 09:44 50 L 05/09/25 07:16 98.1 F 52 L 16 130/61 95 05/09/25 04:09 98.8 F 57 L 18 138/75 94 05/08/25 23:56 98.4 F 69 18 133/64 95 O2 Del Method 05/09/25 09:44 05/09/25 07:16 Room Air 05/09/25 04:09 Room Air 05/08/25 23:56 Room Air Laboratory Results 05/09/25 05/09/25 05/08/25 Range/Units 07:20 05:43 23:51 WBC 10.50 (4.8-10.8) K/ul RBC 4.02 L (4.70-6.10) M/uL Hgb 11.9 L (14.0-18.0) g/dl Hct 36.3 L (42.0-52.0) % MCV 90.3 (80.0-100.0) fL MCH 29.6 (25.0-34.0) pg MCHC 32.8 (32.0-36.0) g/dL RDW Std Deviation 43.8 (36.4-46.3) fL RDW Coeff of Osvaldo 13.3 (11.5-14.5) % Plt Count 310 (130-400) K/uL MPV 10.5 (9.4-12.4) fL Sodium 137 (136-145) mmol/L Potassium 4.0 (3.5-5.1) mmol/L Chloride 105 (98-107) mmol/L Carbon Dioxide 26 (21-32) mmol/L Anion Gap 6 (3-11) BUN 16 (6-23) mg/dl Creatinine 0.96 (0.6-1.4) mg/dl Est Cr Clr Drug Dosing 79.3 ml/min eGFR 83.46 BUN/Creatinine Ratio 16.7 (10-20) Glucose 127 H (70-99(Fasting)) mg/dl POC Glucose 117 H 128 H (70-99) mg/dl Calcium 8.0 L (8.6-10.3) mg/dl Phosphorus 2.5 (2.5-4.9) mg/dl Magnesium 1.9 (1.7-2.4) mg/dl 05/08/25 05/08/25 05/08/25 Range/Units 21:01 18:24 12:40 WBC (4.8-10.8) K/ul RBC (4.70-6.10) M/uL Hgb (14.0-18.0) g/dl Hct (42.0-52.0) % MCV (80.0-100.0) fL MCH (25.0-34.0) pg MCHC (32.0-36.0) g/dL RDW Std Deviation (36.4-46.3) fL RDW Coeff of Osvaldo (11.5-14.5) % Plt Count (130-400) K/uL MPV (9.4-12.4) fL Sodium (136-145) mmol/L Potassium (3.5-5.1) mmol/L Chloride (98-107) mmol/L Carbon Dioxide (21-32) mmol/L Anion Gap (3-11) BUN (6-23) mg/dl Creatinine (0.6-1.4) mg/dl Est Cr Clr Drug Dosing ml/min eGFR BUN/Creatinine Ratio (10-20) Glucose (70-99(Fasting)) mg/dl POC Glucose 130 H 126 H 204 H (70-99) mg/dl Calcium (8.6-10.3) mg/dl Phosphorus (2.5-4.9) mg/dl Magnesium (1.7-2.4) mg/dl PG Care Time/CCT Total # of Minutes Spent Total Time Spent with Patient: Total time spent is greater than 50% in coordination of care (as documented) at patient's floor/unit and/or counseling patient: Coding Level of Care Code None
--- NOTE | 2025-05-09 13:00 | GI REPORT ---
[facility] Patient: YARON WEAVER : 1950 Sex at : Male Age: 75 Years Procedure: Upper GI endoscopy Date: 05/09/2025 Attending Physician: Marcelo Hinds MD Referring MD: Gume Ureña Md Indications: - Nausea and vomiting Medications: - Monitored Anesthesia Care Complications: - No immediate complications. Procedure: - Prior to the procedure, a History and Physical was performed, and patient medications and allergies were reviewed. The patient's tolerance of previous anesthesia was also reviewed. The risks and benefits of the procedure and the sedation options and risks were discussed with the patient. All questions were answered, and informed consent was obtained. [Anticoagulant Agents] [Days Prior to Procedure]. [ASA Grade]. After reviewing the risks and benefits, the patient was deemed in satisfactory condition to undergo the procedure. - The EGD scope was introduced through the mouth and advanced to the second part of the duodenum. - The upper GI endoscopy was accomplished without difficulty. - The patient tolerated the procedure well. Findings: - Savary-Iyer Grade III (circumferential lesion, erosive or exudative) esophagitis [Bleeding] was found in the middle third of the esophagus. Biopsies were taken with a cold forceps for histology. - Diffuse mild inflammation [Hemorrhage] characterized by erythema was found in the gastric antrum and in the gastric body. Biopsies were taken with a cold forceps for Helicobacter pylori testing. - The examined duodenum was normal. Impression: - Savary-Iyer Grade III esophagitis. Biopsied. - Gastritis, characterized by erythema. Biopsied. - Normal examined duodenum. Recommendation: - Resume previous diet. - Patient has a contact number available for emergencies. The signs and symptoms of potential delayed complications were discussed with the patient. Return to normal activities tomorrow. Written discharge instructions were provided to the patient. Procedure Code(s): - 26016, Esophagogastroduodenoscopy, flexible, transoral; with biopsy, single or multiple Diagnosis Code(s): - K20.90, Esophagitis, unspecified without bleeding - K29.70, Gastritis, unspecified, without bleeding CPT(R) - 2023 copyright [employer]. All Rights Reserved. The CPT codes, CCI edits and ICD codes generated are intended as suggestions and were generated based on input data. These codes are preliminary and upon traffic workforce representative review may be revised to meet current compliance and payer requirements. The provider is responsible for the final determination of appropriate codes, and modifiers. Marcelo Hinds MD This document has been electronically signed. Note Initiated:05/09/2025 Note Completed:05/09/2025 12:59 PM \\[email or web address]\[id number]
--- NOTE | 2025-05-09 13:20 | Anesthesiology Progress Note ---
Date of Service May 09, 2025 Anesthesia Post Procedure Vital Signs Vital Signs: Temp Pulse Pulse Resp BP BP Pulse Ox 05/09/25 13:01 62 16 144/72 H 95 05/09/25 12:20 36.7 C 57 L 18 143/68 H 94 05/09/25 09:44 50 L 05/09/25 07:16 36.7 C 52 L 16 130/61 95 05/09/25 04:09 37.1 C 57 L 18 138/75 94 05/08/25 23:56 36.9 C 69 18 133/64 95 05/08/25 21:48 55 L 05/08/25 19:55 36.8 C 58 L 16 126/73 95 05/08/25 15:35 36.8 C 56 L 18 135/56 L 96 05/08/25 13:42 54 L O2 Del Method 05/09/25 13:01 Room Air 05/09/25 12:20 Room Air 05/09/25 09:44 05/09/25 07:16 Room Air 05/09/25 04:09 Room Air 05/08/25 23:56 Room Air 05/08/25 21:48 05/08/25 19:55 Room Air 05/08/25 15:35 Room Air 05/08/25 13:42 Pain Intensity Back: Pain Intensity: 5 Transfer of Care Handoff Completed per policy Notes Mental Status: alert / awake / arousable Patient Amnestic to Procedure: Yes Nausea / Vomiting: adequately controlled Pain: adequately controlled Airway Patency, RR, SpO2: stable & adequate BP & HR: stable & adequate Hydration State: stable & adequate Anesthetic Complications: no major complications apparent
[2025-05-09] MEDS ORDERED: CYCLOBENZAPRINE HCL 10 MG TAB PO PRN (14:26)
--- NOTE | 2025-05-09 14:26 | Hospitalist Progress Note ---
Date of Service May 09, 2025 Assessment & Plan (1) Acute upper gastrointestinal bleeding: Plan: Patient is a 74 year old M with a past medical history of hypertension, hyperlipidemia, DM Type II insulin-dependent, lumbar disc herniation with radiculopathy s/p decompression with bilateral medial facetectomies and foraminotomies T12-L2 with excision of herniated free fragment L1-L2, posterior spinal fusion T11-L2 on 05/01/25 presenting with vomiting, hiccups, back pain. Patient noted to have post-op dyspepsia and treated with PPI, pepcid and phenergan symptoms improved by discharge and then worsened 2 days ago with hiccups and vomiting post-eating. Bloody emesis started last night. Not tolerating pain meds at home. Patient had back surgery in 2022 to L3-L6 and experienced similar symptoms post- operatively. GI scope completed and that time with no further workup or management needed. Acute upper GI bleed * Admit to Med Surg Tele for further management * Patient experiencing constant hiccups, wretching, scant dark blood with emesis * Given NSS 1L, protonix, zofran, dilaudid x 2 given in the ED. * Protonix gtts started --> to PO bid from AM * GI evaled, s/p EGD scope 05/09 - Gr III esophagitis and gastritis noted. Biopsied. F/u histopath results. * Hgb 14 on admission, on recheck down to 12.3--> HnH stable around 11-12. * Resume diet, dc ivf. * Trop elevated 76.4 and trended down with repeat assessments, now 66.7-- susp ect demand in setting of dehydration * Zofran and phenergan as needed * If no further bleeding/N/V on resuming diet and if HnH stable in AM, likely dc in AM. #Low back pain S/P lumbar disc herniation with radiculopathy repair 05/01 * Dilaudid 0.5 mg as needed for severe pain and morphine for mod pain. * Acetaminophen 1 gm Q8H scheduled * Transition to po pain meds when able. #Constipation * KUB Xray showing large amount of retained stool at the right colon. No bowel obstruction seen. No gross free air. * No BM since previous admission * Fleets enema ordered and given in ED x 1 * c/w colace daily and miralax as needed * Encourage bowel regimen with narcotic tx #Diabetes Mellitus * SSI while inpatient * ON home glarginine 32 units--> will give 18 units while IP with SSI * Accuchecks Q4H while NPO, transition to ACHS when able * Glycemic consult placed DVT Ppx: Scds Code status: Full PCP: Dr. Viera Dispo: Med Surg Tele for further management (2) Lumbar disc herniation with radiculopathy: (3) Low back pain: (4) Constipation: (5) Diabetes mellitus, type 2: Admission and Anticipated Discharge Date Admission Date: May 07, 2025 Subjective Patient was seen and examined at bedside. Patient was lying in bed, on room air, NAD. Patient reports no further nausea and vomiting while in the hospital, reports pain better controlled w/ morphine. Patient denies fever/sore throat/cough/chest pain/abdominal pain. Physical Exam Physical Exam: GEN: Healthy appearing, well-developed, NAD. PSYCH: Good Judgment. AOx3. Normal memory, mood, and affect. HEENT -Head: NC/AT; -Eyes: PERRL, EOMI. No discharge or redn ess; -Ears: External ears are normal. -Nose: Normal nares. -Mouth and throat: Dry mucous membranes. Good dentition. NECK: Supple, with no masses. CV: RRR, no m/r/g. LUNGS: CTAB, no w/r/c. ABD: Firm, distended and nontender, hypoactive BS, no masses or organomegaly. : N/A SKIN: Warm, well perfused. No skin rashes or abnormal lesions. MSK: No deformities EXT: No clubbing, cyanosis, or edema. NEURO: CN II-XII grossly intact. Normal muscle strength and tone. No focal deficits. Results & Data Results & Data Vital Signs (Past 12 Hours) Vital Signs Temp Pulse Pulse Resp BP BP Pulse Ox 05/09/25 13:48 36.9 C 50 L 18 142/74 H 93 05/09/25 13:16 53 L 16 140/77 94 05/09/25 13:01 62 16 144/72 H 95 05/09/25 12:20 36.7 C 57 L 18 143/68 H 94 05/09/25 09:44 50 L 05/09/25 07:16 36.7 C 52 L 16 130/61 95 05/09/25 04:09 37.1 C 57 L 18 138/75 94 O2 Del Method 05/09/25 13:48 Room Air 05/09/25 13:16 Room Air 05/09/25 13:01 Room Air 05/09/25 12:20 Room Air 05/09/25 09:44 05/09/25 07:16 Room Air 05/09/25 04:09 Room Air (3) Low back pain Back pain laterality: midline Chronicity: acute Sciatica presence: without sciatica Qualified Code(s): M54.50 - Low back pain, unspecified (4) Constipation Constipation type: drug induced constipation Qualified Code(s): K59.03 - Drug induced constipation (5) Diabetes mellitus, type 2 Diabetes mellitus terminal operator insulin use: with terminal operator use Diabetes mellitus complication status: without complication Qualified Code(s): E11.9 - Type 2 diabetes mellitus without complications; Z79.4 - long-term (current) use of insulin
[2025-05-09] MEDS: LACTULOSE SYRUP 20 GM/30 ML UDC PO ONE (16:12)
[2025-05-09] MEDS: INSULIN ASPART PER UNIT CHARGE SC SCH (17:27)
[2025-05-09] MEDS: PROPOFOL IV EMULSION 10 MG/ML 20 ML VIAL IV ONE (18:57)
[2025-05-09] MEDS: LIDOCAINE 2% 2 ML VIAL/AMP(20MG/ML) INFIL ONE (18:57)
[2025-05-10 03:14] VITALS: TEMP 98.1
[2025-05-10 06:03] LABS: Hematocrit (blood only) 38.8 % (42.0-52.0); Hemoglobin 12.5 g/dl (14.0-18.0); Mean Corpuscular Hemoglobin 28.7 pg (25.0-34.0); Mean Corpuscular Volume 89.2 fL (80.0-100.0); Platelet Count 347 K/uL (130-400); RDW Standard Deviation 44.5 fL (36.4-46.3); Red Blood Count 4.35 M/uL (4.70-6.10); White Blood Count 8.55 K/ul (4.8-10.8)
[2025-05-10 06:17] LABS: Anion Gap 5.0 (3-11); Blood Urea Nitrogen 12.0 mg/dl (6-23); Calcium 8.5 mg/dl (8.6-10.3); Carbon Dioxide 28.0 mmol/L (21-32); Chloride 104.0 mmol/L (98-107); Creatinine Clr Calc Pharmacy 80.0 ml/min; Glucose 114.0 mg/dl (70-99(Fasting)); Potassium 4.3 mmol/L (3.5-5.1); Sodium 137.0 mmol/L (136-145)
[2025-05-10 07:35] VITALS: BP 135/77; PULSE 55; RESP 18; O2SAT 93
[2025-05-10] MEDS: CHOLECALCIFEROL 25 MCG (1000 UNITS) TAB PO SCH (09:06)
[2025-05-10] MEDS: EZETIMIBE 10 MG TAB PO SCH (09:06)
--- NOTE | 2025-05-10 09:36 | Discharge Summary ---
Date of Service May 10, 2025 Admission HPI Per Admitting Provider Patient is a 74 year old M with a past medical history of hypertension, hyperlipidemia, DM Type II insulin-dependent, lumbar disc herniation with radiculopathy s/p decompression with bilateral medial facetectomies and fo raminotomies T12-L2 with excision of herniated free fragment L1-L2, posterior spinal fusion T11-L2 on 05/01/25 presenting with vomiting, hiccups, back pain. Patient noted to have post-op dyspepsia and treated with PPI, pepcid and phenergan symptoms improved by discharge and then worsened 2 days ago with hiccups and vomiting post-eating. Bloody emesis started last night. Not tolerating pain meds at home. Patient had back surgery in 2022 to L3-L6 and experienced similar symptoms post- operatively. GI scope completed and that time with no further workup or management needed. Denies fever, chills, weight loss, weakness, headache, cognitive changes, vision/hearing changes, chest pain, SOB, swelling, difficulty breathing, urinary concerns, N/V/D, joint swelling/pain, ambulation difficulty, skin rashes, lesions, bleeding, bruising. In the emergency department, patient was hemodynamically stable with hgb 14 and no evidence of infection/sepsis. Trop elevated 76.4 and trended down with repeat assessments, now 66.7; EKG with NSR with fusion complexes, vent rate 85 bpm, QTc 440; previous EKG assessment from 05/02 showing NSR with 1st degree A-V block. Denies cardiac symptoms. Upon review of labs, WBC elev 13.62, afebrile and no signs of sepsis. Glucose elevated to 300's initially, but then trended down to 250's with IV hydration. Chest Xray without acute findings. KUB Xray showing large amount of retained stool at the right colon. No bowel obstruction seen. No gross free air. Given NSS 1L, protonix, zofran, dilaudid x 2 given in the ED. Recent echo from last admission showing moderate concentric LVH, EF 60-65%, grade 1 diastolic dysfunction. Noted to have post-op tachycardia that resolved by discharge and hyperkalemia that was treated with IVF. Kidney functioning stable at time of d/c with Cr 1.19. Noted to have abnormal CXR last admission with widened mediastinum of unclear etiology. Pt denied cardiac or respiratory complaints at that time, no history of aortic aneurysm. CTA chest w/wo con ordered - no aortic aneurysm, cardiomegaly, vasc congestion and reticular changes noted in periphery of lungs likely representing mild fibrotic change. Follow Cards and Pulmonary at d/c needed. History obtained primarily from the patient and via hospitalization record. The patient's family was at the bedside and assisted with history of present illness. External chart review obtained from [facility]. Admission Exam Per Admitting Provider GEN: Healthy appearing, well-developed, NAD. PSYCH: Good Judgment. AOx3. Normal memory, mood, and affect. HEENT -Head: NC/AT; -Eyes: PERRL, EOMI. No discharge or redness; -Ears: External ears are normal. -Nose: Normal nares. -Mouth and throat: Dry mucous membranes. Good dentition. NECK: Supple, with no masses. CV: RRR, no m/r/g. LUNGS: CTAB, no w/r/c. ABD: Firm, distended and nontender, hypoactive BS, no masses or organomegaly. +++ hiccups : N/A SKIN: Warm, well perfused. No skin rashes or abnormal lesions. MSK: No deformities EXT: No clubbing, cyanosis, or edema. NEURO: CN II-XII grossly intact. Normal muscle strength and tone. No focal deficits Principal Diagnosis Upper Gastrointestinal bleed Esophagitis Gastritis Discharge Exam Constitutional + well hydrated and + obese; no acute distress Eyes PERRL, conjunctivae normal, anicteric sclerae ENMT external ear and nose normal, oropharynx normal Respiratory normal respiratory effort, lungs clear to auscultation Cardiovascular Rate/Rhythm: regular rhythm and + bradycardic Gastrointestinal (Abdomen) normal bowel sounds, soft, nontender, no hepatosplenomegaly Musculoskeletal No pedal edema Neurologic PERRL, EOMI, accommodation nl, no face palsy, no dysarthria Psychiatric A+Ox3, euthymic affect Discharge Data Allergies Allergy/AdvReac Type Severity Reaction Status Date / Time atorvastatin Allergy Unknown On file w/ Unverified 05/09/25 12:[address] [facility] metformin Allergy Unknown On file w/ Unverified 05/09/25 12:[address] [facility] Consultations 05/07/25 10:51 ED Decision to Admit Stat 05/07/25 13:18 Consult Gastroenterology Routine Procedures Performed Operation Date: 05/09/25 16:45 Actual Procedures p EGD Biopsy Cytology - Marcelo Hinds MD Diabetes Follow up Diabetes Follow-up Needed for HgbA1c >9% Hospital Course (1) Acute upper gastrointestinal bleeding: (2) Lumbar disc herniation with radiculopathy: (3) Low back pain: (4) Constipation: (5) Diabetes mellitus, type 2: Plan 74 year old Man with a past medical history of hypertension, hyperlipidemia, DM Type II insulin-dependent, lumbar disc herniation with radiculopathy s/p decompression with bilateral medial facetectomies and foraminotomies T12-L2 with excision of herniated free fragment L1-L2, posterior spinal fusion T11-L2 on 05/01/25 presenting with vomiting, hiccups, back pain. Patient noted to have post-op dyspepsia and treated with PPI, pepcid and phenergan symptoms improved by discharge and then worsened 2 days ago with hiccups and vomiting post-eating. Bloody emesis started last night. Not tolerating pain meds at home. Patient had back surgery in 2022 to L3-L6 and experienced similar symptoms post- operatively. GI scope completed and that time with no further workup or management needed. Acute upper GI bleed Gastritis Esophagitis Presented with hematemesis He was evaluated by GI and had EGD on 05/09/25 EGD showed Savary-Iyer Grade III esophagitis and Gastritis which were biopsied Hb remained stable. 12.5 today Had BM last night which was normal Hematemesis have resolved Discharged on PO PPI BID #Low back pain S/P lumbar disc herniation with radiculopathy repair 05/01 Pain is well controlled Can continue prn acetaminophen mild to moderate pain and resume his prn oxycodone for severe pain from recent surgery #Constipation KUB Xray showing large amount of retained stool at the right colon. No bowel obstruction seen. No gross free air. Had bowel regimen and had a good BM last night Reports he has stool softeners at home #Diabetes Mellitus HbA1c 9.6 Provided DM education Continue insulin and follow up with PCP Total Time Total Time Spent Total Time Spent (In Minutes): 45 Total Time Includes: Examination of the Patient, Discharge Planning and Medication Reconciliation Discharge Plan Discharge Items Patient Disposition: Home - Self-Care Reason For Visit: UPPER GI BLEED Discharge Diagnosis: Upper Gastrointestinal bleed Esophagitis Gastritis Condition on Discharge: Fair Activity: Resume your previous activity Non-emergency contact: Primary Care Provider Call non-emergency contact if: you have any medication questions Follow-up/Referrals: Jordy Viera, [employer] [Primary Care Provider] - (The [facility] will call you with a follow up appointment.) Diet: Carb Consistent or DM2 and Heart Healthy Addtl Attending Provider Instructions: Mr Childress You were admitted for bloody vomiting. You were evaluated with endoscopy (EGD) and found to have esophagitis and gastritis. You are being discharged on pantoprazole. Please ensure follow up with your Primary Doctor. It was a pleasure taking care of you. Addtl Professor Of Economics Provider Instructions: DIABETES RECOMMENDATIONS: 1.) Aim to maintain blood sugar levels below 180 (ideally below 140 before meals) to support healing/help lower risk of post-op infectious complications. 2.) Take your Semglee insulin in the evening/before bed. 3.) Focus on taking your Novolog insulin 10-15 minutes before each meal- adjust the dose according to food intake/meal size and blood sugar levels. 4.) Notify your outpatient provider of blood sugar levels frequently above/below target. Pending Studies at Discharge: Yes (pathology) Stand-Alone Forms: My [facility] [place], Smoking Cessation Medications and DC Order Prescriptions: New pantoprazole 40 mg tablet,delayed release (DR/EC) 40 mg PO BID Qty: 60 0RF Continued oxycodone 5 mg tablet 5 mg PO Q6H PRN (Reason: pain) Qty: 30 0RF cyclobenzaprine 10 mg Tablet 10 mg PO Q8H PRN (Reason: Muscle Spasms) telmisartan 40 mg Tablet 20 mg PO DAILY lidocaine 5 % Adhesive Patch,Medicated 1 patch TOPICAL DAILY Rx Instructions: leave on most painful area for up to 12 hrs ezetimibe 10 mg Tablet 10 mg PO DAILY insulin aspart U-100 100 unit/mL (3 mL) Insulin Pen 17 - 20 unit subcut AC Rx Instructions: Skip if skipping meal or eating no carbs cholecalciferol (vitamin D3) [Vitamin D3] 25 mcg (1,000 unit) Tablet 50 mcg PO DAILY Discharge Orders: Discharge Order (Routine); Ordered 05/10/25 Ordered By: Alba Mackey/Other Patient Handouts: Managing Type 2 Diabetes, Type 2 Diabetes Admission Data Admit Date/Time: 05/07/25 12:04 Attending Provider: Alba Reilly I. Admit Provider: Mateo Araya Primary Care Provider: Jordy Viera Other Providers: Mateo Araya; Marcelo Hinds I; [facility]; Gume Ureña Other Interventions: Discharge Summary Assessment (RN) Last Done: 05/10/25 10:18
[2025-05-10] MEDS: LOSARTAN POTASSIUM 25 MG TAB PO SCH (10:01)
== END 2025-05-10 10:55 | disposition home or self-care (01) | DRG 369 ==
LOC: ED 09:03 → 2W 12:04 → SUATTDRO 12:04 → 2W 12:40